=== PATIENT | female | born 1970 | race African-American/Black ===

== ENCOUNTER → 2020-12-17 15:16 | Outpatient (BNVA) | payer OTHER, SELFPAY | PROVIDERS: PCP Internal Medicine; Visit Provider Surgery ==

== ENCOUNTER → 2020-12-17 15:16 | Outpatient (BNVA) | payer OTHER, SELFPAY | PROVIDERS: PCP Internal Medicine; Visit Provider Surgery ==

== ENCOUNTER → 2020-12-18 08:41 | Outpatient (BNVA) | payer OTHER, SELFPAY | PROVIDERS: PCP Internal Medicine; Visit Provider Surgery ==

== ENCOUNTER 2021-01-02 10:07 | Outpatient (REF) | payer OTHER, SELFPAY ==
--- NOTE | ~2021-01-02 | XR_ITS ---
EXAMINATION: XR CHEST CLINICAL INFORMATION: Morbid obesity due to excess calories COMPARISON: None TECHNIQUE: 2 views of the chest were obtained. FINDINGS: There is no focal consolidation. There is no pneumothorax. The trachea is midline. The cardiac mediastinal silhouette is not enlarged. There is no pleural effusions. Very mild degenerative changes of the thoracic spine. Surgical clips in the right upper quadrant abdomen status post cholecystectomy. XR/XR chest 2V IMPRESSION: No acute cardiopulmonary process.
[2021-01-02 11:25] LABS: MANUAL DIFF FLAG NO
[2021-01-02 11:29] LABS: Basophils Absolute Auto 0.1 X10*3/uL (0.0-0.2); Basophils Percent Auto 1.4 % (0-2); Eosinophils Absolute Auto 0.1 X10*3/uL (0.0-0.4); Eosinophils Percent Auto 1.7 % (0-4); Hemoglobin 13.8 g/dl (12.0-16.0); Imm Gran Abs Auto 0.02 X10*3/uL (0.00-0.03); Imm Gran Pct Auto 0.3 % (0.0-0.4); Lymphocytes Percent Auto 51.5 % (20-40); Mean Corpuscular HGB Conc 32.9 g/dl (31.0-35.0); Mean Corpuscular Hemoglobin 26.4 pg (27.0-33.0); Mean Corpuscular Volume 80.5 fL (80-98); Mean Platelet Volume 11.1 fL (9.4-12.3); Monocytes Absolute Auto 0.5 X10*3/uL (0.1-1.2); Monocytes Percent Auto 8.3 % (2-11); Neutrophils Absolute Auto 2.1 X10*3/uL (2.0-8.3); Neutrophils Percent Auto 36.8 % (45-73); Platelet Count 422 X10*3/uL (160-400); Red Blood Count 5.22 X10*6/uL (4.20-5.50); Red Cell Distribution Width 13.9 % (11.0-16.0); White Blood Count 5.8 X10*3/uL (4.8-10.8)
[2021-01-02 11:44] LABS: Estimated Average Glucose 117 mg/dL; Hemoglobin A1c % 5.7 %
[2021-01-02 11:53] LABS: Alanine Aminotransferase 47 U/L (0-31); Albumin Level 4.4 g/dL (3.5-5.0); Alkaline Phosphatase 85 U/L (39-117); Anion Gap 13 (12-20); Aspartate Amino Transferase 30 U/L (5-31); Bilirubin Total 0.9 mg/dL (0.0-1.0); Blood Urea Nitrogen 15 mg/dL (9-16); C Reactive Protein 1.19 mg/dL (< or = 0.50); Calcium 9.7 mg/dL (8.4-10.2); Carbon Dioxide 27 mmol/L (22-29); Chloride 106 mmol/L (96-108); Cholesterol 209 mg/dL; Estimated Glomerular Filt Rate 56; Glucose Random 101 mg/dL (60-115); HDL Cholesterol 56 mg/dL; LDL Cholesterol Calculated 133 mg/dl; Potassium 4.2 mmol/L (3.3-5.1); Sodium 142 mmol/L (135-145); Total Protein 7.7 g/dL (6.5-8.0); Triglycerides 100 mg/dL
[2021-01-02 12:19] LABS: TSH reflex Free T4 1.42 uIU/mL (0.32-4.0)
[2021-01-02 12:50] LABS: Ferritin 206 ng/mL (10-250)
[2021-01-04 08:37] LABS: Folate 15.8 ng/mL (> or = 4.0); Vitamin B12 463 pg/mL (200-900)
[2021-01-04 17:32] LABS: Insulin Level Total 14.8 uIU/mL
[2021-01-05 06:26] LABS: Calcium (PTHI) 9.9 mg/dL (8.6-10.2); PTHI 74 pg/mL (14-64)
[2021-01-05 12:46] LABS: Zinc 86 mcg/dL (60-130)
[2021-01-07 15:36] LABS: Vitamin A 49 mcg/dL (38-98)
== END 2021-01-02 10:08 | disposition home or self-care (01) ==
LOC: HO.LAB 10:07
PROVIDERS: PCP Internal Medicine; Visit Provider Surgery
DX: E66.01 Morbid (severe) obesity due to excess calories (principal); I10 Essential (primary) hypertension; K21.9 Gastro-esophageal reflux disease without esophagitis; Z11.0 Encounter for screening for intestinal infectious diseases
CPT/HCPCS: 36415; 71046; 80053; 80061; 82306; 82607; 82728; 82746; 83036; 83525; 83970; 84425; 84443; 84590; 84630; 85025; 86140

== ENCOUNTER 2021-01-06 08:06 | Outpatient (REF) | payer OTHER, SELFPAY ==
--- NOTE | ~2021-01-06 | US_ITS ---
EXAMINATION: US COMPLETE ABDOMEN WITH LIVER ELASTOGRAPHY CLINICAL INFORMATION: Obesity. COMPARISON: None. TECHNIQUE: Real-time imaging of the abdominal viscera. Noninvasive ultrasound liver fibrosis assessment is performed using Lilly ElastPQ point quantification shear wave elastography (pSWE) with a C5-2 MHz transducer. Multiple elastography samples are obtained. FINDINGS: PANCREAS: The head and body of the pancreas are normal. The tail is not well visualized due to bowel gas. ABDOMINAL AORTA: The proximal, middle, and distal aortic segments are normal in caliber. INFERIOR VENA CAVA: Visualized portions are normal. LIVER: Liver echotexture is increased probably representing fatty infiltration. The liver is normal in contour. No focal liver lesion or biliary ductal dilatation is seen. The liver is upper normal in size. The right lobe measures 17 cm in length. The left lobe measures 13 cm in length. Portal flow is hepatopedal/normal. Shear wave liver elastography median stiffness is 1.2 m/s (reference: normal median stiffness is 1.3 m/s or less). IQR/median stiffness to assess sampling precision is 0.3 (reference: good quality data set is IQR/median stiffness of 0.15 or less). GALLBLADDER: Post cholecystectomy. COMMON BILE DUCT: Normal in caliber measuring 0.7 cm in diameter. RIGHT KIDNEY: There is a 2 cm cyst in the lower pole. No hydronephrosis. No renal calculi or focal parenchymal lesions. The kidney measures 11 cm in maximum dimension. LEFT KIDNEY: Normal. No hydronephrosis. No renal calculi. The kidney measures 11 cm in maximum dimension. SPLEEN: Normal. The spleen measures 9 cm in maximum dimension. FREE FLUID: None. US/US abdomen comp w elastography IMPRESSION: 1. Impression: Echogenic liver probably representing fatty infiltration. Right renal cyst. Limited visualization of the pancreas. 2. Liver elastography: High probability of normal liver stiffness. No evidence of compensated advanced chronic liver disease. Exam is slightly limited due to sampling error. REFERENCE: Society of Radiologists in Ultrasound Liver Stiffness Thresholds (2020): LIVER STIFFNESS THRESHOLDS: *Liver Stiffness equal or less than 1.3 m/s: High probability of being normal. *Liver Stiffness less than 1.7 m/s: In the absence of other known clinical signs, rules out compensated advanced chronic liver disease. *Liver Stiffness 1.7-2.1 m/s: Suggestive of compensated advanced chronic liver disease but need further test for confirmation. *Liver Stiffness over 2.1 m/s: Rules in compensated advanced chronic liver disease. *Liver Stiffness over 2.4 m/s: Suggestive of clinically significant portal hypertension. QUALITY OF DATA SET: *IQR/Median value equal or less than 0.15 implies a quality data set. *IQR/Median value over 0.15 implies a poor quality data set. SIGNIFICANT CHANGE FROM PRIOR EXAM: Significant change if liver stiffness measurement is 10% or greater from prior exam. OTHER CONSIDERATIONS: The stage of liver fibrosis may be overestimated in the setting of acute hepatitis, liver inflammation, elevated liver function tests, hepatic vascular congestion, obstructive cholestasis, non-fasting state, and infiltrative diseases such as amyloidosis and lymphoma. In some patients with NAFLD, the liver stiffness thresholds for compensated advanced chronic liver disease may be lower. In causes other than viral hepatitis and NAFLD, liver stiffness thresholds are not well established.
--- NOTE | ~2021-01-06 | FL_ITS ---
EXAMINATION: XR GI SERIES CLINICAL INFORMATION: Morbid obesity COMPARISON: None TECHNIQUE: Air contrast upper GI examination FINDINGS: There is normal apposition of the vocal cords while saying E. There is normal elevation of the soft palate while saying Candy. Patient swallowed thin and thick barium without difficulty. No nasopharyngeal reflux or tracheal aspiration. The esophagus demonstrated normal distensibility and normal mucosal pattern without persistent stricture or ulceration. No hiatal hernia. There was noted to be spontaneous gastroesophageal reflux to the level of the michele. This cleared slowly. The stomach demonstrated normal distensibility without abnormal mass or ulceration. There was no delay in gastric emptying. The duodenal bulb and sweep appeared unremarkable. FLUOROSCOPY TIME: 1.7 minutes DOSE AREA PRODUCT: 26.962 jacob centimeter squared FL/FL upper GI series IMPRESSION: Normal air contrast upper GI examination except for gastroesophageal reflux to the level of the michele which was spontaneous.
--- NOTE | 2021-01-06 15:25 | ECG_ITS ---
Test Reason : MORBID OBESITY Blood Pressure : / mmHG Vent. Rate : 071 BPM Atrial Rate : 071 BPM P-R Int : 208 ms QRS Dur : 072 ms QT Int : 392 ms P-R-T Axes : 042 038 034 degrees QTc Int : 425 ms Normal sinus rhythm Normal ECG No previous ECGs available Referred By: Cosme Campos Electronically Signed By:Aleksandr Stiles
[2021-01-10 06:37] LABS: Vitamin B1 10 nmol/L (8-30)
== END 2021-01-06 08:07 | disposition home or self-care (01) ==
LOC: HO.US 08:06
PROVIDERS: Visit Provider Surgery
DX: Z01.818 Encounter for other preprocedural examination (principal); E66.01 Morbid (severe) obesity due to excess calories; K21.9 Gastro-esophageal reflux disease without esophagitis; I10 Essential (primary) hypertension
CPT/HCPCS: 36415; 74240; 76705; 76981; 84425; 93005

== ENCOUNTER → 2021-01-15 08:25 | Outpatient (BNVA) | payer OTHER, SELFPAY | PROVIDERS: PCP Internal Medicine; Visit Provider Surgery ==

== ENCOUNTER → 2021-01-20 08:16 | Outpatient (BNVA) | payer OTHER, SELFPAY | PROVIDERS: PCP Internal Medicine; Visit Provider Dietitian, Registered ==

== ENCOUNTER 2021-01-22 07:40 | Outpatient (REF) | payer OTHER, SELFPAY ==
[2021-01-23 14:32] LABS: H Pylori Breath Test NOT DETECTED (NOT DETECTED)
== END 2021-01-22 07:41 | disposition home or self-care (01) ==
LOC: HO.LNP 07:40
PROVIDERS: PCP Internal Medicine; Visit Provider Surgery
DX: Z11.0 Encounter for screening for intestinal infectious diseases (principal)
CPT/HCPCS: 83013

== ENCOUNTER → 2021-02-01 08:10 | Outpatient (BNVA) | payer OTHER, SELFPAY | PROVIDERS: PCP Internal Medicine; Visit Provider Surgery ==

== ENCOUNTER → 2021-02-17 13:17 | Outpatient (BNVA) | payer OTHER, SELFPAY | PROVIDERS: PCP Internal Medicine; Visit Provider Dietitian, Registered ==

== ENCOUNTER → 2021-02-24 08:04 | Outpatient (BNVA) | payer OTHER, SELFPAY | PROVIDERS: PCP Internal Medicine; Visit Provider Surgery ==

== ENCOUNTER → 2021-03-17 08:35 | Outpatient (BNVA) | payer OTHER, SELFPAY | PROVIDERS: PCP Internal Medicine; Visit Provider Surgery ==

== ENCOUNTER → 2021-04-08 08:14 | Outpatient (BNVA) | payer OTHER, SELFPAY | PROVIDERS: PCP Internal Medicine; Visit Provider Surgery ==

== ENCOUNTER → 2021-05-05 07:12 | Outpatient (BNVA) | payer OTHER, SELFPAY | PROVIDERS: PCP Internal Medicine; Visit Provider Surgery ==

== ENCOUNTER → 2021-06-11 06:56 | Outpatient (BNVA) | payer OTHER, SELFPAY | PROVIDERS: PCP Internal Medicine; Visit Provider Surgery ==

== ENCOUNTER → 2021-06-28 09:00 | Outpatient (BNVA) | payer OTHER, SELFPAY | PROVIDERS: PCP Internal Medicine; Visit Provider Physician Assistant ==

== ENCOUNTER → 2021-07-14 07:45 | Outpatient (BNVA) | payer OTHER, SELFPAY | PROVIDERS: PCP Internal Medicine; Visit Provider Surgery ==

== ENCOUNTER → 2021-07-16 12:48 | Outpatient (BNVA) | payer OTHER, SELFPAY | PROVIDERS: PCP Internal Medicine; Visit Provider Physician Assistant ==

== ENCOUNTER 2021-07-27 06:15 | Inpatient (IN) | payer OTHER, SELFPAY ==
[2021-07-16 09:37] VITALS: BMI 38.7
[2021-07-16 13:53] LABS: MANUAL DIFF FLAG NO
[2021-07-16 14:00] LABS: Basophils Absolute Auto 0.1 X10*3/uL (0.0-0.2); Basophils Percent Auto 1.2 % (0-2); Eosinophils Absolute Auto 0.1 X10*3/uL (0.0-0.4); Eosinophils Percent Auto 1.5 % (0-4); Hematocrit 42.1 % (37-47); Imm Gran Abs Auto 0.03 X10*3/uL (0.00-0.03); Imm Gran Pct Auto 0.5 % (0.0-0.4); Lymphocytes Absolute Auto 2.9 X10*3/uL (1.2-4.9); Lymphocytes Percent Auto 47.7 % (20-40); Mean Corpuscular HGB Conc 33.3 g/dl (31.0-35.0); Mean Corpuscular Hemoglobin 26.6 pg (27.0-33.0); Mean Platelet Volume 11.3 fL (9.4-12.3); Monocytes Absolute Auto 0.4 X10*3/uL (0.1-1.2); Monocytes Percent Auto 6.7 % (2-11); Neutrophils Absolute Auto 2.5 X10*3/uL (2.0-8.3); Neutrophils Percent Auto 42.4 % (45-73); Platelet Count 391 X10*3/uL (160-400); Red Blood Count 5.26 X10*6/uL (4.20-5.50); Red Cell Distribution Width 14.1 % (11.0-16.0)
[2021-07-16 14:03] LABS: Prothrombin Time 11.7 SEC (9.9-13.0)
[2021-07-16 14:10] LABS: Estimated Average Glucose 108 mg/dL; Hemoglobin A1c % 5.4 %
[2021-07-16 14:20] LABS: Alanine Aminotransferase 27 U/L (0-31); Albumin Level 4.6 g/dL (3.5-5.0); Alkaline Phosphatase 80 U/L (39-117); Anion Gap 16 (12-20); Aspartate Amino Transferase 23 U/L (5-31); Bilirubin Total 1.3 mg/dL (0.0-1.0); Blood Urea Nitrogen 12 mg/dL (9-16); C Reactive Protein 1.26 mg/dL (< or = 0.50); Calcium 10.3 mg/dL (8.4-10.2); Carbon Dioxide 24 mmol/L (22-29); Chloride 103 mmol/L (96-108); Cholesterol 216 mg/dL; Creatinine Clr Calc Pharmacy 73.7; Estimated Glomerular Filt Rate 50; Glucose Random 95 mg/dL (60-115); HDL Cholesterol 56 mg/dL; LDL Cholesterol Calculated 137 mg/dl; Potassium 3.9 mmol/L (3.3-5.1); Sodium 139 mmol/L (135-145); Total Protein 7.8 g/dL (6.5-8.0); Triglycerides 118 mg/dL
[2021-07-16 14:41] LABS: TSH reflex Free T4 1.08 uIU/mL (0.32-4.0)
[2021-07-20 01:36] LABS: Insulin Level Total 12.7 uIU/mL
--- NOTE | 2021-07-23 08:57 | P.CONAN_ITS ---
Documented by User: Leatha Rollins NP 07/23/21 08:58 HPI - Anesthesia Eval Consult details Narrative: 51yo F for Gastrectomy Sleeve, EGD, Poss Diaphragmatic Hernia, Poss Ventral Hernia, Poss open PMFSH Active Problems Active Problems: All Active Problems (Updated 07/16/21 @ 13:57 by Nory Kearney RN) Vitamin D deficiency (Acute) Vitamin B12 deficiency (Acute) Adjustment disorder, unspecified (Acute) GERD (gastroesophageal reflux disease) (Acute) Hypertension (Acute) Morbid obesity (Acute) Past Medical History Medical History COVID-19 vaccine series completed GERD (gastroesophageal reflux disease) Herpes Hypertension Morbid obesity Family History Family History Mother Hypertension Diabetes Kidney disease Father Prostate cancer Diabetes Hypertension Brother No problems noted. Sister Pre-diabetes Son No problems noted. Surgical History Surgical History Hx of hysterectomy Hx of oophorectomy S/P cholecystectomy Social History Social History Household Members Other:: room mate Are you a primary auto care center manager to a significant other at home: No Do you presently have visiting nurse or other home services: No Patient Tobacco Use Status: Never used Tobacco Use of substances other than those prescribed or required for medical reasons: No Have you been hit, kicked, punched, or otherwise hurt by someone within the past year? If so, by whom?: No Are you DNR?: No Advance Directives: No Advance Directives Information Provided: No Advance Directives on File: No Recently lost weight without trying: No Meds Allergies Allergy/AdvReac Type Severity Reaction Status Date / Time No Known Allergies Allergy Verified 07/16/21 09:28 Home Medications Medication Instructions Recorded Confirmed Last Taken Type amlodipine 10 mg-atorvastatin 10 1 tab PO DAILY 12/18/20 07/16/21 Unknown History mg tablet hydrochlorothiazide 25 mg tablet 25 mg PO DAILY 12/18/20 07/16/21 Unknown History omeprazole 10 mg capsule,delayed 40 mg PO DAILY cap 12/18/20 07/16/21 Unknown History release losartan 25 mg tablet 50 mg PO DAILY 07/14/21 07/16/21 Unknown History Exam Exam Date and Time: July 23, 2021 0857 Height,Weight and Vital Signs: Height 5 ft 6 in Weight 108.862 kg Pertinent Lab Results Pertinent Lab Results: Laboratory Tests 07/16/21 07/16/21 07/16/21 13:10 13:10 13:10 WBC 6.0 RBC 5.26 Hgb 14.0 Hct 42.1 MCV 80.0 MCH 26.6 L MCHC 33.3 RDW 14.1 Plt Count 391 MPV 11.3 Immature Gran % (Auto) 0.5 H Neut % (Auto) 42.4 L Lymph % (Auto) 47.7 H [place] % (Auto) 6.7 Eos % (Auto) 1.5 Baso % (Auto) 1.2 Lymph # (Auto) 2.9 [place] # (Auto) 0.4 Eos # (Auto) 0.1 Baso # (Auto) 0.1 Abs Immat Gran (auto) 0.03 Absolute Neuts (auto) 2.5 Absolute Nucleated RBC 0.000 Nucleated RBC % (auto) 0.0 PT 11.7 INR 1.0 APTT 37.0 Sodium 139 Potassium 3.9 Chloride 103 Carbon Dioxide 24 Anion Gap 16 BUN 12 Creatinine 1.14 Estim Creat Clear Calc 73.7 Estimated GFR 50 Random Glucose 95 Estimat Average Glucose Hemoglobin A1c % Total Insulin Calcium 10.3 H D Total Bilirubin 1.3 H AST 23 ALT 27 Alkaline Phosphatase 80 C-Reactive Protein 1.26 H Total Protein 7.8 Albumin 4.6 Triglycerides 118 Cholesterol 216 LDL Cholesterol, Calc 137 HDL Cholesterol 56 TSH 1.08 Blood Type Antibody Screen 07/16/21 07/16/21 07/16/21 13:10 13:10 13:10 WBC RBC Hgb Hct MCV MCH MCHC RDW Plt Count MPV Immature Gran % (Auto) Neut % (Auto) Lymph % (Auto) [place] % (Auto) Eos % (Auto) Baso % (Auto) Lymph # (Auto) [place] # (Auto) Eos # (Auto) Baso # (Auto) Abs Immat Gran (auto) Absolute Neuts (auto) Absolute Nucleated RBC Nucleated RBC % (auto) PT INR APTT Sodium Potassium Chloride Carbon Dioxide Anion Gap BUN Creatinine Estim Creat Clear Calc Estimated GFR Random Glucose Estimat Average Glucose 108 Hemoglobin A1c % 5.4 Total Insulin 12.7 Calcium Total Bilirubin AST ALT Alkaline Phosphatase C-Reactive Protein Total Protein Albumin Triglycerides Cholesterol LDL Cholesterol, Calc HDL Cholesterol TSH Blood Type A Positive Antibody Screen NEGATIVE Narrative Narrative: EKG 12/2020 Vent. Rate : 071 BPM ? ? Atrial Rate : 071 BPM ?? P-R Int : 208 ms? QRS Dur : 072 ms ? ? QT Int : 392 ms ? ? ? P-R-T Axes : 042 038 034 degrees ?? QTc Int : 425 ms ? Normal sinus rhythm Normal ECG No previous ECGs available Assessment and Plan Assessment Anesthesia Assessment: Chart Reviewed Documented by User: aJnet Dinh MD 07/27/21 10:07 PMFSH Past Medical History Medical History COVID-19 vaccine series completed GERD (gastroesophageal reflux disease) Herpes Hypertension Morbid obesity Family History Family History Mother Hypertension Diabetes Kidney disease Father Prostate cancer Diabetes Hypertension Brother No problems noted. Sister Pre-diabetes Son No problems noted. Surgical History Surgical History Hx of hysterectomy Hx of oophorectomy S/P cholecystectomy History of Problems with Anesthesia: No Social History Social History Household Members Other:: room mate Are you a primary auto care center manager to a significant other at home: No Do you presently have visiting nurse or other home services: No Patient Tobacco Use Status: Never used Tobacco Use of substances other than those prescribed or required for medical reasons: No Have you been hit, kicked, punched, or otherwise hurt by someone within the past year? If so, by whom?: No Are you DNR?: No Advance Directives: No Advance Directives Information Provided: No Advance Directives on File: No Recently lost weight without trying: No Meds Allergies Allergy/AdvReac Type Severity Reaction Status Date / Time No Known Allergies Allergy Verified 07/16/21 09:28 Home Medications Medication Instructions Recorded Confirmed Last Taken Type amlodipine 10 mg-atorvastatin 10 1 tab PO DAILY 12/18/20 07/16/21 Unknown History mg tablet hydrochlorothiazide 25 mg tablet 25 mg PO DAILY 12/18/20 07/16/21 Unknown History omeprazole 10 mg capsule,delayed 40 mg PO DAILY cap 12/18/20 07/16/21 Unknown History release losartan 25 mg tablet 50 mg PO DAILY 07/14/21 07/16/21 Unknown History Exam Airway Mallampati Class: II TM Dist: >3cm Neck ROM: Full Loose/Missing/Broken Teeth: No Heart: RRR Lungs: CTA Assessment and Plan Assessment Anesthesia Assessment: Anesthesia Plan Discussed Final Anesthetic Review History of Problems with Anesthesia: No NPO: Yes ASA Class: II Final Preanesthetic Review: Meds/Allgs Chart Reviewed, Consent Obtained/Reviewed and Anes Risks/Benef Reviewed Patient Risk: Low Procedure Risk: Intermediate Anesthetic Plan Anesthetic Plan: GA Disposition: Standard PACU
--- NOTE | 2021-07-26 23:20 | MHC.SHP ---
Pre-Procedural Eval Section A Date of Service: 07/26/21 The patient is an INPATIENT: Yes The History & Physical has been completed within 30 days and I have reviewed it.: Yes Section B Chief Complaint: Morbid Severe Obesity Relevant Family History (Specify if Yes): No Relevant Social History: None History of Previous Operations: No relevant previous surgery Allergies: Allergies Allergy/AdvReac Type Severity Reaction Status Date / Time No Known Allergies Allergy Verified 07/16/21 09:28 Review of Systems Sugical H&P ROS: Negative: Constitution, Cardiovascular, Respiratory, Neurological, Psychiatric, Hem-Onc, Allergic/Immunologic, Gastrointestinal, Genitourinary, Musculoskeletal, Integumentary, Endocrine and Eyes/Ears/Nose/Throat Exam Surgical H&P Exam: Normal: HEENT, Normal: Heart, Normal: Lungs, Normal: Extremities, Normal: Abdomen, Normal: Skin and Normal: Neurological Plan Diagnosis/Plan: Unchanged I have reviewed the history and physical and performed a pertinent physical examination on my patient. No changes have occurred unless specified.
[2021-07-27] VITALS (16 sets, daily range): BP systolic 139–179; BP diastolic 71–98; PULSE 65–83; RESP 14–18; TEMP 36.2–36.8; O2SAT 91–100
[2021-07-27] MEDS: Lactated Ringers 1,000 ML 100 ML IVCONT (09:31)
[2021-07-27] MEDS: Lactated Ringers 1,000 ML 999 ML IV (09:31)
[2021-07-27 09:52] LABS: COVID-19 Test Negative (Negative)
--- NOTE | 2021-07-27 10:10 | PM.PNGS ---
Subjective Subjective Date of Service: 07/28/21 Interval history: Patient has mild incisional pain, but was able to ambulate and use the incentive spirometer. She is tolerating phase 1 bariatric diet Physical Exam Vital Signs: Vital Signs: Last Vital Signs Temp 98 F 07/27/21 09:05 Pulse 78 07/27/21 09:05 Resp 18 07/27/21 09:05 BP 173/98 H 07/27/21 09:05 Pulse Ox 98 07/27/21 09:05 Body Mass Index 38.7 GI: Inspection: Yes normal to inspection and Yes incision (clean, dry and intact) Extrem: Right lower extremity: normal to inspection (no calf tenderness) Left lower extremity: normal to inspection (no calf tenderness) Procedures Date of Service Date of Service: 07/28/21 Progress Note: A&P Assessment and plan (1) Morbid obesity: Status: Acute Assessment and Plan: s/p laparoscopic sleeve gastrectomy and gastropexy Doing well Check am labs. If OK, will discharge home (2) Hypertension: Status: Acute (3) GERD (gastroesophageal reflux disease): Status: Acute (4) Adjustment disorder, unspecified: Status: Acute (5) Steatosis, liver: Status: Acute (6) S/P laparoscopic sleeve gastrectomy: Status: Acute (7) Gastric tumor: Status: Acute Fall Risk Details Current Medications: Current Medications Generic Name Dose Route Start Last Admin Trade Name Freq PRN Reason Stop Dose Admin Albuterol Sulfate 2.5 mg 07/27/21 10:08 Albuterol Sulfate (0.083%) 2.5 Mg/3 Ml Vial.Neb INHALE ONCE PRN Wheezing Fentanyl 50 mcg 07/27/21 10:08 Fentanyl Citrate/Pf 100 Mcg/2 Ml Vial IVPUSH Q5M PRN Pain, Severe (Pain Scale 7-10) Protocol Fentanyl 25 mcg 07/27/21 10:08 Fentanyl Citrate/Pf 100 Mcg/2 Ml Vial IVPUSH Q5M PRN Pain, Moderate (Pain Scale 4-6 Protocol Hydromorphone HCl 0.5 mg 07/27/21 10:08 Hydromorphone Hcl 0.5 Mg/0.5 Ml Syringe IVPUSH Q5M PRN Pain, Severe (Pain Scale 7-10) Protocol Hydromorphone HCl 0.25 mg 07/27/21 10:08 Hydromorphone Hcl 0.5 Mg/0.5 Ml Syringe IVPUSH Q5M PRN Pain, Severe (Pain Scale 7-10) Protocol Lactated Ringer's 1,000 mls @ 100 mls/hr 07/27/21 07:30 07/27/21 09:31 Lr IVCONT 100 mls/hr .Q10H KORY Administration Promethazine HCl 12.5 mg/ 50.5 mls @ 202 mls/hr 07/27/21 10:08 Sodium Chloride IV ONCE PRN Nausea and Vomiting Ondansetron HCl 4 mg 07/27/21 10:08 Ondansetron Hcl 4 Mg/2 Ml Vial IVPUSH ONCE PRN Nausea and Vomiting Oxycodone HCl 10 mg 07/27/21 10:08 Oxycodone Hcl Immed Release 5 Mg Tablet PO ONCE PRN Pain, Severe (Pain Scale 7-10) Oxycodone HCl 5 mg 07/27/21 10:08 Oxycodone Hcl Immed Release 5 Mg Tablet PO ONCE PRN Pain, Severe (Pain Scale 7-10) Time Spent With Patient Time: Total time spent is greater than 50% in coordination of care (as documented) at patient's floor/unit and/or counseling patient: Time with patient: less than 15 minutes Quality Stroke Does the patient have a stroke diagnosis?: No VTE Prior VTE?: No VTE Risk Level:: Surgical - moderate VTE Device Contraindication: N/A - Device Ordered VTE Drug Contraindication: Treatment Not Indicated
--- NOTE | 2021-07-27 10:12 | P.BOP_ITS ---
Brief Operative Note Date of Service: 07/27/21 Pre-op diagnosis: Morbid obesity and comorbidities (see below) Post-op diagnosis: same (gastric tumor & abdominal adhesions) Procedure: INITIAL PATIENT BMI ON PRESENTATION AT OUR OFFICE: 41.1 kg/m2 LAST BMI BEFORE SURGERY: 40.3 kg/m2 COMORBIDITIES: hypertension, GERD, liver steatosis The patient participated in an intensive weekly lifestyle ?intervention and exercise program during which the patient ?has lost between the initial office visit and the last preoperative visit 7.2 lbs, or 2.96% of initial actual body weight. The patient met the BMI-criteria for bariatric surgery based on the BMI on initial presentation. The patient should not be penalized for achieving such weight loss because ?it is not sustainable long-term without surgical intervention and it was achieved in preparation for bariatric surgery ?under my direction and based on my published research ([email or web address] and? [email or web address].org/article/[email or web address])87530-X/pdf ) ?that a 10% preoperative weight loss improves long-term weight loss after surgery and reduces perioperative complications.? Insurance carriers such as [facility] have endorsed my recommendations ?and have included in their policies criteria to include a 10% preoperative weight loss requirement. PROCEDURE: Esophago-gastroscopy, laparoscopic sleeve gastrectomy and laparoscopic gastropexy INDICATIONS: This is a 51 year-old female who was electively scheduled for laparoscopic, possibly open sleeve gastrectomy. The risks and complications of the procedure were discussed with the patient in advance, particularly the possibility of ; pulmonary embolism; staple line leak; bleeding; GERD; cardiac, pulmonary, or renal complications; as well as long-term problems such as insufficient weight loss, vitamin deficiency, strictures, or ulcers. The patient understood all the risks, and was in agreement to proceed with surgery. DESCRIPTION OF PROCEDURE: After informed consent was obtained from the patient, the patient was given preoperative antibiotics, and was transferred to the operating room. After successful induction of general anesthesia, pneumatic compressive devices were placed on both lower extremities. An upper endoscopy was performed next. The oropharynx and esophagus appeared to be within normal limits. There was no diaphragmatic hernia present consistent w ith the findings of the preoperative upper GI. The stomach was entered. Then after all fluid and air were suctioned and the stomach was fully decompressed, the scope was withdrawn and secured in the mid esophagus. The patient was then prepped and draped in the usual sterile manner, and abdominal access was established at the right upper quadrant with the Marcos technique. A 12 mm blunt port was inserted, and the abdomen was insufflated with CO2 to a pressure of 15 mmHg. Under direct visualization, additional ports were placed, specifically two 5 mm Versi-step ports to the left upper quadrant, and a 5 mm Versi-Step port to the right upper quadrant. 1% lidocaine plain was used to infiltrate all port sites as well as all fascia defects. Using the EndoClose suture passer device, we placed a #1 Polysorb tie across the falciform ligament in order to retract it up against the abdominal wall and prevent injury of the ligament with our instruments during the procedure. There were adhesions in the abdomen from previous hysterectomy involving the omentum and the anterior abdominal wall. They were not lysed as they did not interfere with our procedure. Following that, the patient was placed in a steep reverse Trendelenburg position. An additional 5 mm port was placed to the right flank for the Mediflex retractor that was used to retract the left lobe of the liver. The gastro-esophageal fat pad was opened with the ultrasonic device (Thunderbeat, Olympus) and the anterior esophagus and hiatus were exposed. The angle of His was opened with the ultrasonic device the fundus of the stomach from any diaphragmatic and splenic attachments. I then opened the gastrocolic ligament between the transverse colon and the greater curvature of the stomach with the ultrasonic device to enter the lesser sac and facilitate the ligation of the short gastric vessels. I started at a mid-point along the greater curvature and using the Thunderbeat, all short gastric vessels were divided all the way to the angle of His until the left serge was completely dissected at its entirety. I then divided the gastro-colic ligament distally to a distance of about 3-4 cm proximal to the esophagus. The stomach was then divided transversely with one Endo NILTON-45 purple, one NILTON- 45 orange and five NILTON-60 articulating orange loads using the AEON stapler and loads. Every effort was made that the gastric sleeve had a tubular shape and an even caliber throughout. Once the sleeve resection was completed, the staple line of the gastric sleeve was reinforced with Hemoclips. The resected stomach was retrieved without difficulty from the Marcos port. A gastropexy was then performed in order to prevent postoperative GERD and partial gastric volvulus. Several interrupted 2.0 Surgidac sutures were placed between the sleeve's staple line and the previously divided greater omentum and gastro-colic ligament using the Endo-Stitch device. ?An upper endoscopy was performed. There was no narrowing at the GE junction. The scope was easily advanced all the way to the pylorus which was clearly visualized. There was no narrowing anywhere and the sleeve's caliber was even throughout. The sleeve's staple line was inspected and there was no evidence of ischemia, bleeding or dehiscence. At that point the gastroscope was withdrawn from the patient?s mouth while we were decompressing the bowel and the stomach from any remaining air. I looked into the lesser sac to see how the sleeve was situating and it was situating well. There was no bleeding from the staple line, spleen, or short gastric vessels. The Mediflex retractor was removed, and the undersurface of the liver was inspected and there was no bleeding. The patient was placed in supine position. I closed the fascial defect of the 12 mm port site with a figure of eight #1 Polysorb suture. Then 100 cc 0.25 % Marcaine plain with 10 mg of Dexamethasone were used to infiltrate the fascial closure as well as all skin incisions. At this point, the abdomen was deflated, all ports were removed under direct vision, and no bleeding was noted from any of the port sites. The skin incisions were irrigated with saline and were closed with 4-0 absorbable monofilament sutures. Steri-Strips and OpSites were used to cover all incisions. The patient was extubated and was transferred in stable condition to the recovery room for further care. I was present and performed all louie parts of the procedure. Petey was the boilermaker's assistant. There were no residents to assist with this case. Itz Campos MD, PhD, FACS Surgeon: Cosme Campos MD Anesthesia: GETA, local and other (TAP block) Was an Fabric Separator Operator used for this Procedure?: No Fabric Separator Operator: Rizwana Angelo Estimated blood loss (mL): 10 IV fluids (mL): 2,500 Urine output (mL): 0 (No Chapman to record) Condition: stable Disposition: PACU
--- NOTE | 2021-07-27 13:05 | P.DS_ITS ---
DS: Providers Provider Date of Service: 07/28/21 Date of admission: 07/27/21 06:15 Primary care physician: Trini Physician DS: Diagnosis Discharge Diagnosis (1) Morbid obesity: Status: Acute (2) Hypertension: Status: Acute (3) GERD (gastroesophageal reflux disease): Status: Acute (4) Adjustment disorder, unspecified: Status: Acute (5) Steatosis, liver: Status: Acute (6) S/P laparoscopic sleeve gastrectomy: Status: Acute (7) Gastric tumor: Status: Acute DS: Summary Hospital Course Hospital Course: ADMITTING DIAGNOSIS: morbid obesity, HTN, hyperlipidemia, GERD DISCHARGE DIAGNOSIS: same, s/p laparoscopic sleeve gastrectomy and repair diaphragmatic hernia PAST SURGICAL HISTORY:laparoscopic cholecystectomy, hysterectomy PROCEDURE: upper endoscopy, laparoscopic sleeve gastrectomy DISCHARGE SUMMARY: History of Present Illness: The patient is a 51 year-old woman with a BMI of 41.1 kg/m2 and associated co- morbidities as described above. The patient had extensive work-up,lost 7 lbs preoperatively and was electively scheduled for laparoscopic, possible open sleeve gastrectomy and gastropexy. Risks and complications of the surgery were discussed with the patient in advance, particularly the possibility of , pulmonary embolism, anastomotic leak, bleeding, bowel injury, GERD, cardiac, renal or pulmonary complications. The patient understood all the risks and was in agreement with the surgical plan. Hospital Course: The patient underwent an uneventful laparoscopic sleeve gastrectomy with gastropexy on the day of admission. Postoperatively, the patient was transferred to the surgical floor. The patient received IV Acetaminophen and IV dilaudid for pain control. Patient was started on bariatric phase 1 diet POD #0. On postoperative day one, the patient was feeling well without nausea, vomiting, fevers, or tachycardia. The patient had some mild incisional pain and the abdomen was soft. On the morning of postoperative day one, the patient was continued on 1 ounce of water or ice every half hour. During the day, the patient did fairly well, having some incisional pain, but able to ambulate adequately and to tolerate liquids well. Since the patient is doing well, we decided that the patient was ready to be discharged. The patient was given instructions to follow-up with me next week and to call my office for any fever over 101, persistent abdominal pain, nausea, vomiting, GERD, symptoms of DVT such as calf tenderness, or leg swelling, or pulmonary embolism such as chest pain or shortness of breath. The patient was also instructed to drink 40-60 ounces of liquids per day using the 1-ounce cups. The patient had been given prescriptions for Tylenol for pain, Zofran prn for nausea, and pantoprazole and carafate previously. The patient was encouraged to ambulate and use the incentive spirometer. The patient was allowed to shower, but no baths, and encouraged to stay active at home. All of these instructions were given to the patient personally. All questions were answered and the patient understood all instructions, the instructions were also given to the patient in print. Time Spent with Patient Time attestation: Total time spent providing and/or coordinating discharge services: Discharge coordination time: Less than 30 minutes Quality: Stroke Does the patient have a stroke diagnosis?: No Physical Exam Vital Signs: Vital Signs: Last Vital Signs Temp 98 F 07/27/21 09:05 Pulse 78 07/27/21 09:05 Resp 18 07/27/21 09:05 BP 173/98 H 07/27/21 09:05 Pulse Ox 98 07/27/21 09:05 Body Mass Index 38.7 DS: Data Data Completed and Pending Pending studies at discharge: Pending at discharge 07/27/21 12:37 Surgical [PTH] Routine Labs on day of discharge: Laboratory Results - last 24 hr 07/27/21 08:56 COVID-19 ([facility]) Negative COVID-19 Clin Com See Note Discharge Plan Discharge Anticipated Discharge Date/Time: 07/28/21 10:02 Patient Disposition: Home, Self-Care Discharge Diagnosis: s/p sleeve gastrectomy Referrals: Physician,None [Primary Care Provider] - 1 Week Discharge Medications: Continued amlodipine-atorvastatin 10-10 mg tablet 1 tab PO DAILY RF: 0 losartan 25 mg tablet 50 mg PO DAILY RF: 0 pantoprazole 40 mg tablet,delayed release (DR/EC) 40 mg PO DAILY Qty: 30 RF: 2 sucralfate 100 mg/mL suspension 10 ml PO BID Qty: 400 RF: 2 ondansetron HCl [Zofran] 4 mg tablet 4 mg PO Q12H Qty: 20 RF: 0 Held hydrochlorothiazide 25 mg tablet 25 mg PO DAILY RF: 0 Hold Instructions: Discuss restarting with Dr Campos Discontinued cholecalciferol (vitamin D3) 125 mcg (5,000 unit) capsule 125 mcg PO DAILY Qty: 30 RF: 2 mecobalamin (vitamin B12) 1,000 mcg tablet,disintegrating 1,000 mcg sublingual DAILY Qty: 30 RF: 2 omeprazole 10 mg capsule,delayed release(DR/EC) 40 mg PO DAILY RF: 0 polyethylene glycol 3350 [Miralax] 17 gram powder in packet 17 g PO DAILY Qty: 14 RF: 0 Discharge Orders: Discharge Order (Routine); Ordered 07/28/21 Ordered By: Cosme Campos Diet: other Activity on Discharge: No heavy lifting Stand Alone Forms: Patient Portal Discharge page Care Plan Goals: weight loss Health Concerns: morbid obesity Plan of Treatment: No tub baths, sex or returning to work until discussed at first post op appointment. No exercise, alcohol, tobacco or illegal drug use. Continue to use incentive spirometer hourly while awake. Walk in home for 5- 10 minutes every 2 hours during the first week. Continue phase 1 diet today and start phase 2 diet tomorrow morning. Follow all instructions in the bariatric handbook and call with any questions. The patient's medical history has been reviewed and they are considered low risk for post op DVT and therefore DVT prophylaxis is not considered necessary. Travel after surgery was reviewed. The patient has not disclosed any travel plans during the first 30 days after surgery and they have been advised that within the first 30 days after surgery any bus, plane, train or car travel over 2 hours in duration is contraindicated due to the possibility of developing blood clots from immobility. Any travel, needs to include periods of ambulation of 10 minutes in duration every 2 hours. The patient was instructed to discuss any plans for travel during this period with their bariatric surgeon. Assessment: stable, s/p sleeve gastrectomy
[2021-07-27] MEDS: Famotidine/PF 20 MG/2 ML VIAL IVPUSH ×2 (13:26→22:25)
[2021-07-27 13:34] LABS: Hematocrit 43.9 % (37-47); Hemoglobin 14.2 g/dl (12.0-16.0)
[2021-07-27 13:54] LABS: Anion Gap 13 (12-20); Blood Urea Nitrogen 6 mg/dL (9-16); Calcium 9.6 mg/dL (8.4-10.2); Carbon Dioxide 25 mmol/L (22-29); Chloride 107 mmol/L (96-108); Creatinine Clr Calc Pharmacy 67.2; Estimated Glomerular Filt Rate 45; Glucose Random 151 mg/dL (60-115); Potassium 3.9 mmol/L (3.3-5.1); Sodium 141 mmol/L (135-145)
[2021-07-27] MEDS: Lactated Ringers 1,000 ML 125 ML IVCONT ×2 (14:26→22:27)
[2021-07-27] MEDS: ceFAZolin Sodium/Dextrose,Iso 2 GM/50 ML PIGGYBACK IV (16:04)
[2021-07-27] MEDS: Losartan Potassium 50 MG TABLET PO (17:33)
[2021-07-27] MEDS: Metoclopramide HCl 10 MG/2 ML VIAL IVPUSH (17:47)
[2021-07-27] MEDS: ondansetron HCL 4 MG/2 ML VIAL IVPUSH (20:14)
[2021-07-27] MEDS: amLODIPine Besylate 10 MG TABLET PO (20:14)
[2021-07-28 03:52] VITALS: BP 136/69; PULSE 78; RESP 16; TEMP 36.6; O2SAT 97
[2021-07-28] MEDS: ondansetron HCL 4 MG/2 ML VIAL IVPUSH (04:31)
[2021-07-28] MEDS: Lactated Ringers 1,000 ML 125 ML IVCONT (06:08)
[2021-07-28 06:30] LABS: MANUAL DIFF FLAG NO
[2021-07-28 06:48] LABS: Anion Gap 14 (12-20); Blood Urea Nitrogen 6 mg/dL (9-16); Calcium 9.7 mg/dL (8.4-10.2); Carbon Dioxide 25 mmol/L (22-29); Chloride 105 mmol/L (96-108); Creatinine Clr Calc Pharmacy 74.4; Estimated Glomerular Filt Rate 51; Glucose Random 110 mg/dL (60-115); Potassium 4.1 mmol/L (3.3-5.1); Sodium 140 mmol/L (135-145)
[2021-07-28 06:52] LABS: Basophils Percent Auto 0.1 % (0-2); Hematocrit 38.6 % (37-47); Imm Gran Abs Auto 0.03 X10*3/uL (0.00-0.03); Imm Gran Pct Auto 0.3 % (0.0-0.4); Lymphocytes Absolute Auto 1.5 X10*3/uL (1.2-4.9); Lymphocytes Percent Auto 17.3 % (20-40); Mean Corpuscular HGB Conc 33.7 g/dl (31.0-35.0); Mean Corpuscular Hemoglobin 26.8 pg (27.0-33.0); Mean Corpuscular Volume 79.6 fL (80-98); Mean Platelet Volume 11.6 fL (9.4-12.3); Monocytes Absolute Auto 0.7 X10*3/uL (0.1-1.2); Monocytes Percent Auto 7.8 % (2-11); Neutrophils Absolute Auto 6.6 X10*3/uL (2.0-8.3); Neutrophils Percent Auto 74.5 % (45-73); Platelet Count 338 X10*3/uL (160-400); Red Blood Count 4.85 X10*6/uL (4.20-5.50); Red Cell Distribution Width 13.7 % (11.0-16.0); White Blood Count 8.8 X10*3/uL (4.8-10.8)
[2021-07-28 07:33] VITALS: BP 136/69; PULSE 90
[2021-07-28] MEDS: Losartan Potassium 50 MG TABLET PO (07:33)
[2021-07-28] MEDS: Famotidine/PF 20 MG/2 ML VIAL IVPUSH (07:33)
[2021-07-28 07:34] VITALS: BP 136/69; PULSE 78
[2021-07-28] MEDS: 0.9 % Sodium Chloride Flush 3 ML SYRINGE IVFLUSH (07:34)
[2021-07-28] MEDS: amLODIPine Besylate 10 MG TABLET PO (07:34)
--- NOTE | 2021-07-28 09:09 | MHC.CM.PN ---
EMR REVIEWED, PT ADMITTED S/P LAP SLEEVE GASTRECTOMY, CM MET W/PT WHO REPORTS SHE IS INDEPENDENT W/ALL CARE, NO DME AND NO HOME SERVICES, PT DOES NOT ANTICIPATE ANY NEEDS AFTER D/C AND HAS FOLLOW-UP APPT W/SURGEON, PT VERIFIES PCP AND COMPLETES HCP W/CM, PT GIVEN EDUCATIONAL INFO, ORIGINAL AND TWO COPIES, COPY UPLOADED TO [employer] AND PLACED IN CHART. D/C HOME SELF-CARE TODAY, PT'S SON TO TRANSPORT HCP: OLIVIA MCFADDEN (SISTER) [phone] ALTERNATE: AUDELIA DEL TORO
--- NOTE | 2021-07-28 15:08 | HO.POSTANES ---
Post Anesthesia Evaluation Post Anesthesia Evaluation Vital Signs: Vital Signs Temp Pulse Resp BP Pulse Ox 07/28/21 07:34 78 136/69 07/28/21 07:33 90 136/69 07/28/21 03:52 97.9 F 78 16 136/69 97 Anesthesia: General Endotracheal-GETA Mental Status: Awake Pain Control: Satisfactory Nausea/Vomiting: None Hydration: Adequate Anesthesia-Related Issues: No Anes. Related Issues
== END 2021-07-28 10:30 | disposition home or self-care (01) | DRG 403 ==
LOC: HO.SSSA 13:05 → HO.S3 15:05
PROVIDERS: Physician Assistant; Admitting Provider Surgery; PCP Internal Medicine; Visit Provider Surgery
PROC: 0DB64Z3 Excision of Stomach, Percutaneous Endoscopic Approach, Vertical (ICD-10-PCS; CPT 43845; principal; 2021-07-27 10:10)
DX: E66.01 Morbid (severe) obesity due to excess calories (principal); D49.0 Neoplasm of unspecified behavior of digestive system; I10 Essential (primary) hypertension; K21.9 Gastro-esophageal reflux disease without esophagitis; K66.0 Peritoneal adhesions (postprocedural) (postinfection); Z20.822 Contact with and (suspected) exposure to COVID-19; Z68.41 Body mass index [BMI] 40.0-44.9, adult; Z79.899 Other long term (current) drug therapy
CPT/HCPCS: 36415; 80048; 80053; 80061; 83036; 83525; 84443; 85014; 85018; 85025; 85610; 85730; 86140; 86850; 86900; 86901; 87635; 88307; 88341; 88342; 99024; A4649; J0131; J0690; J1100; J1170; J2250; J2370; J2405; J2765; J3010

== ENCOUNTER → 2021-08-04 07:18 | Outpatient (BNVA) | payer OTHER, SELFPAY | PROVIDERS: PCP Internal Medicine; Visit Provider Surgery ==

== ENCOUNTER → 2021-09-02 07:59 | Outpatient (BNVA) | payer OTHER, SELFPAY | PROVIDERS: PCP Internal Medicine; Visit Provider Surgery ==

== ENCOUNTER → 2021-10-06 07:59 | Outpatient (BNVA) | payer OTHER, SELFPAY | PROVIDERS: PCP Internal Medicine; Visit Provider Surgery ==

== ENCOUNTER 2021-10-22 13:18 | Outpatient (REF) | payer OTHER, SELFPAY ==
[2021-10-22 13:45] LABS: MANUAL DIFF FLAG NO
[2021-10-22 14:23] LABS: Basophils Absolute Auto 0.1 X10*3/uL (0.0-0.2); Basophils Percent Auto 1.1 % (0-2); Eosinophils Percent Auto 0.7 % (0-4); Hematocrit 43.4 % (37.0-47.0); Imm Gran Abs Auto 0.01 X10*3/uL (0.00-0.03); Imm Gran Pct Auto 0.2 % (0.0-0.4); Lymphocytes Absolute Auto 2.8 X10*3/uL (1.2-4.9); Lymphocytes Percent Auto 49.9 % (20-40); Mean Corpuscular HGB Conc 32.3 g/dl (31.0-35.0); Mean Corpuscular Hemoglobin 26.4 pg (27.0-33.0); Mean Corpuscular Volume 81.7 fL (80.0-98.0); Mean Platelet Volume 11.7 fL (9.4-12.3); Monocytes Absolute Auto 0.4 X10*3/uL (0.1-1.2); Monocytes Percent Auto 6.5 % (2-11); Neutrophils Absolute Auto 2.3 x10*3/uL (2.0-8.3); Neutrophils Percent Auto 41.6 % (45-73); Platelet Count 364 X10*3/uL (160-400); Red Blood Count 5.31 X10*6/uL (4.20-5.50); Red Cell Distribution Width 14.4 % (11.0-16.0); White Blood Count 5.5 X10*3/uL (4.8-10.8)
[2021-10-22 14:36] LABS: Estimated Average Glucose 103 mg/dL; Hemoglobin A1c % 5.2 %
[2021-10-22 14:55] LABS: Alanine Aminotransferase 20 U/L (0-31); Albumin Level 4.5 g/dL (3.5-5.0); Alkaline Phosphatase 92 U/L (39-117); Anion Gap 16 (12-20); Aspartate Amino Transferase 22 U/L (5-31); Bilirubin Total 1.2 mg/dL (0.0-1.0); Blood Urea Nitrogen 12 mg/dL (9-16); C Reactive Protein 0.59 mg/dL (< or = 0.50); Calcium 10.5 mg/dL (8.4-10.2); Carbon Dioxide 26 mmol/L (22-29); Chloride 106 mmol/L (96-108); Cholesterol 188 mg/dL; Estimated Glomerular Filt Rate 53; Glucose Random 91 mg/dL (60-115); HDL Cholesterol 62 mg/dL; Iron 84 mcg/dL (30-160); LDL Cholesterol Calculated 109 mg/dl; Percent Iron Saturation 28 % (15-50); Potassium 3.9 mmol/L (3.3-5.1); Sodium 144 mmol/L (135-145); Total Iron Binding Capacity 301 mcg/dL (228-428); Total Protein 7.8 g/dL (6.5-8.0); Triglycerides 89 mg/dL; Unsaturated Iron Binding 217 ug/dL
[2021-10-22 15:09] LABS: Ferritin 243 ng/mL (10-250); Insulin 11 uU/mL (2-29); TSH reflex Free T4 1.25 uIU/mL (0.32-4.0); Vitamin D 25-OH Total 45.8 ng/mL (>30)
[2021-10-22 15:34] LABS: Folate 15.6 ng/mL (> or = 4.0); Vitamin B12 1331 pg/mL (200-900)
[2021-10-25 14:42] LABS: Calcium (PTHI) 10.6 mg/dL (8.6-10.4); PTHI 40 pg/mL (14-64)
[2021-10-27 00:20] LABS: Vitamin A 41 mcg/dL (38-98)
[2021-10-27 00:51] LABS: Zinc 91 mcg/dL (60-130)
[2021-10-27 11:42] LABS: Vitamin B1 9 nmol/L (8-30)
== END 2021-10-22 13:19 | disposition home or self-care (01) ==
LOC: HO.LAB 13:18
PROVIDERS: Visit Provider Surgery
DX: K91.2 Postsurgical malabsorption, not elsewhere classified (principal); Z90.3 Acquired absence of stomach [part of]
CPT/HCPCS: 36415; 80053; 80061; 82306; 82607; 82728; 82746; 83036; 83525; 83540; 83970; 84425; 84443; 84590; 84630; 85025; 86140

== ENCOUNTER → 2021-10-28 10:07 | Outpatient (BNVA) | payer OTHER, SELFPAY | PROVIDERS: PCP Internal Medicine; Referring Provider Internal Medicine; Visit Provider Physician Assistant Surgical ==

== ENCOUNTER 2022-01-21 08:48 | Outpatient (REF) | payer OTHER, SELFPAY ==
[2022-01-21 10:22] LABS: MANUAL DIFF FLAG NO
[2022-01-21 10:51] LABS: Basophils Absolute Auto 0.1 X10*3/uL (0.0-0.2); Basophils Percent Auto 1.3 % (0-2); Eosinophils Absolute Auto 0.1 X10*3/uL (0.0-0.4); Eosinophils Percent Auto 1.3 % (0-4); Hematocrit 40.7 % (37.0-47.0); Hemoglobin 13.1 g/dl (12.0-16.0); Imm Gran Abs Auto 0.01 X10*3/uL (0.00-0.03); Imm Gran Pct Auto 0.2 % (0.0-0.4); Lymphocytes Absolute Auto 2.7 X10*3/uL (1.2-4.9); Lymphocytes Percent Auto 50.8 % (20-40); Mean Corpuscular HGB Conc 32.2 g/dl (31.0-35.0); Mean Corpuscular Hemoglobin 26.8 pg (27.0-33.0); Mean Corpuscular Volume 83.4 fL (80.0-98.0); Mean Platelet Volume 11.4 fL (9.4-12.3); Monocytes Absolute Auto 0.4 X10*3/uL (0.1-1.2); Neutrophils Absolute Auto 2.1 x10*3/uL (2.0-8.3); Neutrophils Percent Auto 38.4 % (45-73); Platelet Count 315 X10*3/uL (160-400); Red Blood Count 4.88 X10*6/uL (4.20-5.50); Red Cell Distribution Width 13.9 % (11.0-16.0); White Blood Count 5.4 X10*3/uL (4.8-10.8)
[2022-01-21 11:35] LABS: Anion Gap 11 (12-20); Blood Urea Nitrogen 15 mg/dL (9-16); Calcium 10.1 mg/dL (8.4-10.2); Carbon Dioxide 30 mmol/L (22-29); Chloride 103 mmol/L (96-108); Estimated Glomerular Filt Rate 52; Glucose Random 85 mg/dL (60-115); Iron 78 mcg/dL (30-160); Percent Iron Saturation 26 % (15-50); Potassium 4.1 mmol/L (3.3-5.1); Sodium 140 mmol/L (135-145); Total Iron Binding Capacity 299 mcg/dL (228-428); Unsaturated Iron Binding 221 ug/dL
[2022-01-21 11:42] LABS: Folate 18.8 ng/mL (> or = 4.0); Vitamin B12 1095 pg/mL (200-900)
[2022-01-21 11:59] LABS: Ferritin 226 ng/mL (10-250); TSH reflex Free T4 1.05 uIU/mL (0.32-4.0)
[2022-01-26 01:07] LABS: Zinc 103 mcg/dL (60-130)
[2022-01-27 08:11] LABS: Vitamin B1 29 nmol/L (8-30)
[2022-01-27 10:05] LABS: Vitamin A 50 mcg/dL (38-98)
== END 2022-01-21 08:49 | disposition home or self-care (01) ==
LOC: HO.LAB 08:48
PROVIDERS: PCP Internal Medicine; Visit Provider Physician Assistant Surgical
DX: K91.2 Postsurgical malabsorption, not elsewhere classified (principal); E66.9 Obesity, unspecified; Z90.3 Acquired absence of stomach [part of]; Z98.84 Bariatric surgery status
CPT/HCPCS: 36415; 80048; 82306; 82607; 82728; 82746; 83540; 84425; 84443; 84590; 84630; 85025

== ENCOUNTER → 2022-02-25 08:03 | Outpatient (BNVA) | payer OTHER, SELFPAY | PROVIDERS: PCP Internal Medicine; Visit Provider Physician Assistant Surgical | DX: Z98.84 Bariatric surgery status (principal); K91.2 Postsurgical malabsorption, not elsewhere classified; Z90.3 Acquired absence of stomach [part of] ==

== ENCOUNTER → 2022-03-29 08:06 | Outpatient (BNVA) | payer OTHER, SELFPAY | PROVIDERS: PCP Internal Medicine; Visit Provider Physician Assistant Surgical | DX: E66.9 Obesity, unspecified (principal) ==

== ENCOUNTER → 2022-11-15 09:34 | Outpatient (BNVA) | payer OTHER, SELFPAY | PROVIDERS: PCP Internal Medicine; Visit Provider Physician Assistant Surgical | DX: E66.9 Obesity, unspecified (principal) ==

== ENCOUNTER → 2023-03-03 11:05 | Outpatient (BNVA) | payer OTHER, SELFPAY | PROVIDERS: PCP Internal Medicine; Visit Provider Physician Assistant Surgical | DX: Z13.89 Encounter for screening for other disorder (principal) ==

== ENCOUNTER → 2023-05-29 10:08 | Outpatient (BNVA) | payer OTHER, SELFPAY | PROVIDERS: PCP Internal Medicine; Visit Provider Physician Assistant Surgical ==

== ENCOUNTER 2023-07-27 09:57 | Outpatient (AMB) | payer OTHER, SELFPAY ==
--- NOTE | 2023-07-27 09:59 | A.OFFVIS_ITS ---
Intake VS Expanded 07/27/23 10:16 Height 5 ft 4.5 in Weight 196 lb 12.8 oz BMI 33.3 BP 159/86 H Blood Pressure Location Rt brachial Pulse 70 Pulse Source Pulse Oximeter Temp 97.1 F Temperature Source Tympanic Pulse Oximetry 93 Oxygen Delivery Method Room Air Body Fat 70.8 Body Fat Percentage 36.0 Free Fat Mass 125.8 Muscle Mass 119.4 Visceral Mass 9.0 Water Mass 89.6 BMR 1,707 Intake Visit Reasons: (OV) PO LSG 07/27/21 Allergies No Known Allergies Allergy (Verified 07/27/23 10:19) Medication List - Last Reconciled 07/27/23 by CHINTAN Daley amlodipine (Norvasc) 5 mg PO DAILY biotin 10,000 mcg PO DAILY clotrimazole 1% 1 appl topical BID losartan 50 mg PO DAILY metformin 500 mg PO DAILY multivitamin 1 tab PO DAILY HPI HPI Comments History of Present Illness Details This?is a?53?yo female who is s/p LSG 07/27/2021. Presents for 2 year month post op visit. Weight at last visit on 05/29/2023 was 202.6 pounds with a BMI of 34.2, weight today is 196.8 pounds, representing a 5.8 pound weight loss with a BMI today of 33.3.? No complaints of nausea, emesis, abdominal pain or reflux, or constipation. Present meal plan includes: 2 shakes and a meal, or one shake, one b ar/yogurt, and one meal Meals may include hamb[place] miriam and tossed vegetables with rice reports she is getting sugar cravings after she eats started metformin but is inconsistent, does not feel well/diarrhea with it Exercise routine includes: walking, 3x/week for 30 min Pt reports ongoing issues of excess skin of abdomen. Has tried clotrimazole after last visit to relieve itchy painful rashes but this has not completely res olved her issues. Notices that moisture collects in the skin fold and has unpleasant odor, has to wash frequently. Has to wear compressive pants with a tight waistband to hold the extra skin in place to prevent discomfort. Excess skin is uncomfortable when exercising as skin moves around a lot and makes exercise/walking more difficult. Did the patient ever have any of these conditions and are they resolved or still being treated? GERD: mild preop, improved SEAMUS:? never DM:? never HTN:? amlodipine, losartan Hyperlipidemia:? never Post op complications:? none PFSH Medical History COVID-19 vaccine series completed GERD (gastroesophageal reflux disease) Herpes Hypertension Morbid obesity Steatosis, liver Surgical History Hx of oophorectomy S/P cholecystectomy Hx of hysterectomy Family History Mother Hypertension Diabetes Kidney disease Father Prostate cancer Diabetes Hypertension Brother No problems noted. Sister Pre-diabetes Son No problems noted. Social History Household Members Other:: room mate Are you a primary cardiac care unit nurse to a significant other at home: No Do you presently have visiting nurse or other home services: No Alcohol intake: never Patient Tobacco Use Status: Never used Tobacco service: No Current occupational status: employed Physical Exam Vital Signs: Last Vital Signs Temp 97.1 F 07/27/23 10:16 Pulse 70 07/27/23 10:16 BP 159/86 H 07/27/23 10:16 Pulse Ox 93 07/27/23 10:16 Oxygen Delivery Method Room Air 07/27/23 10:16 BMI result Body Mass Index 33.3 Assessment & Plan Assessment & Plan (1) Obesity: Code(s): E66.9 - Obesity, unspecified (2) S/P laparoscopic sleeve gastrectomy: Code(s): Z98.84 - Bariatric surgery status Plan Pt has been successful in losing some weight since last visit but recognizes her sugar cravings are slowing her progress. We reviewed eating and drinking slowly. Suggested changing dinner meal from rice to fruit and gave food list. Ideally this would help minimize sugar cravings. Can also use sugar-free popsicles, sugar free Jello. She also recognizes she often doesn't have time for adequate exercise. Pt will have labs drawn. RTC 6 months per pt preference and encouraged her to reach out sooner if needed. Patient is obese and is not considered stable at this time. I spent a total of 30 minutes reviewing/updating records, examining the patient and counseling the patient on weight management as detailed above. Coding Level of Care Code Est Pt Level 4 (89502) Diagnoses Obesity E66.9 S/P laparoscopic sleeve gastrectomy Z98.84
[2023-07-27 10:16] VITALS: BP 159/86; PULSE 70; TEMP 36.2; O2SAT 93; BMI 33.3
== END 2023-07-27 10:53 | disposition home or self-care (01) ==
PROVIDERS: PCP Internal Medicine; Visit Provider Physician Assistant Surgical
DX: E66.9 Obesity, unspecified (principal); Z68.33 Body mass index [BMI] 33.0-33.9, adult; Z90.3 Acquired absence of stomach [part of]; Z98.84 Bariatric surgery status
CPT/HCPCS: 99214

== ENCOUNTER → 2023-07-27 09:57 | Outpatient (BNVA) | payer OTHER, SELFPAY | PROVIDERS: PCP Internal Medicine; Visit Provider Physician Assistant Surgical ==

== ENCOUNTER 2024-01-25 10:17 | Outpatient (AMB) | payer OTHER, SELFPAY ==
--- NOTE | 2024-01-25 10:36 | MHC.OFFVISWM ---
Intake VS Expanded 01/25/24 10:46 BP 177/83 H Blood Pressure Location Rt brachial Blood Pressure Position Sitting Pulse 74 Pulse Source Pulse Oximeter Temp 96.9 F Temperature Source Tympanic Pulse Oximetry 96 Oxygen Delivery Method Room Air Height 5 ft 4.5 in Weight 220 lb 3.2 oz BMI 37.2 Body Fat % 41.3 Body Fat Mass 90.8 Fat Free Mass 129.2 Visceral Fat Rating 12.0 Body Water % 41.8 Body Water Mass 92.0 Muscle Mass/Score 122.6 Basal Metabolic Rate/Score 1,782 Intake Visit Reasons: (OV) PO LSG 07/27/21 Allergies No Known Allergies Allergy (Verified 01/25/24 10:40) Medication List - Last Reconciled 01/25/24 by CHINTAN Daley amlodipine (Norvasc) 5 mg PO DAILY biotin 10,000 mcg PO DAILY clotrimazole 1% 1 appl topical BID losartan 50 mg PO DAILY metformin 500 mg PO DAILY multivitamin 1 tab PO DAILY HPI HPI Comments History of Present Illness Details This?is a?54?yo female who is s/p LSG 07/27/2021. Presents for 2.5 year post op visit. Weight at last visit on 07/27/2023 was 196.8 pounds with a BMI of 33.3, weight today is 220.2 pounds, representing a 23.4 pound weight gain with a BMI today of 37.2.? No complaints of nausea, emesis, abdominal pain or reflux, or constipation. Reports she has been stressed due to school, loss of job, loss of close family friend. Prescribed metformin but has not been taking regularly. Still having some sugar cravings. Present meal plan includes: 2 shakes and a meal, or one shake, one bar/yogurt, and one meal Meals may include hamb[place] miriam and tossed vegetables or fruit (recommended instead of rice at last visit) Exercise routine includes: walking, 3x/week for 30 min Pt reports ongoing issues of excess skin of abdomen. Has tried clotrimazole to relieve itchy painful rashes but this has not completely resolved her issues. Notices that moisture collects in the skin fold and has unpleasant odor, has to wash frequently. Has to wear compressive pants with a tight waistband to hold the extra skin in place to prevent discomfort. Excess skin is uncomfortable when exercising as skin moves around a lot and makes exercise/walking more difficult. [facility] Medical History (Updated 03/03/23 @ 11:41 by CHINTAN Daley) Steatosis, liver COVID-19 vaccine series completed GERD (gastroesophageal reflux disease) Herpes Hypertension Morbid obesity Surgical History (Updated 01/25/24 @ 10:58 by Noemy Lopes CMA) Hx of laparoscopic partial gastrectomy Hx of oophorectomy S/P cholecystectomy Hx of hysterectomy Family History Mother Hypertension Diabetes Kidney disease Father Prostate cancer Diabetes Hypertension Brother No problems noted. Sister Pre-diabetes Son No problems noted. Social History Household Members Other:: room mate Are you a primary home care rn to a significant other at home: No Do you presently have visiting nurse or other home services: No Alcohol intake: never Patient Tobacco Use Status: Never used Tobacco service: No Current occupational status: employed Assessment & Plan Assessment & Plan (1) Obesity: Code(s): E66.9 - Obesity, unspecified (2) S/P laparoscopic sleeve gastrectomy: Code(s): Z98.84 - Bariatric surgery status (3) Excess skin: Code(s): L98.7 - Excessive and redundant skin and subcutaneous tissue Plan Pt encouraged to get adequate protein in meal plan each day and since she has some extra time not working or in school, focus on increasing exercise. Will set up appt with as pt is dealing with a lot of stress/emotional eating and would like some tactics to help avoid. Labs ordered. Continue clotrimazole ointment for rashes of excess skin. Agreed to write letter to support use of GLP1 agonists which pt can provide to PCP or director of employee development. RTC 6 months. Patient is obese and is not considered stable at this time. I spent a total of 30 minutes reviewing/updating records, examining the patient and counseling the patient on weight management as detailed above. Orders: Orders Insulin Today Z98.84 - Bariatric surgery status Vitamin B12 and Folate Today Z98.84 - Bariatric surgery status Zinc Today Z98.84 - Bariatric surgery status C Reactive Protein Today Z98.84 - Bariatric surgery status TSH reflex Free T4 Today Z98.84 - Bariatric surgery status Vitamin D 25-OH Total Today Z98.84 - Bariatric surgery status Hemoglobin A1c Today Z98.84 - Bariatric surgery status Complete Blood Count Auto Diff Today Z98.84 - Bariatric surgery status Lipid Panel Today Z98.84 - Bariatric surgery status IRON PROFILE Today Z98.84 - Bariatric surgery status Comprehensive Met. Panel Today Z98.84 - Bariatric surgery status Vitamin B1 Today Z98.84 - Bariatric surgery status Vitamin A Today Z98.84 - Bariatric surgery status Ferritin Today Z98.84 - Bariatric surgery status Coding Level of Care Code Est Pt Level 4 (60309) Diagnoses Obesity E66.9 S/P laparoscopic sleeve gastrectomy Z98.84 Excess skin L98.7
[2024-01-25 10:46] VITALS: BP 177/83; PULSE 74; TEMP 36.1; O2SAT 96; BMI 37.2
== END 2024-01-25 10:59 | disposition home or self-care (01) ==
PROVIDERS: PCP Internal Medicine; Visit Provider Physician Assistant Surgical
DX: E66.9 Obesity, unspecified (principal); Z68.37 Body mass index [BMI] 37.0-37.9, adult; Z90.3 Acquired absence of stomach [part of]; Z98.84 Bariatric surgery status; L98.7 Excessive and redundant skin and subcutaneous tissue
CPT/HCPCS: 99214

== ENCOUNTER 2024-01-25 10:17 | Outpatient (REF) | payer OTHER, SELFPAY ==
[2024-01-25 11:26] LABS: MANUAL DIFF FLAG NO
[2024-01-25 11:50] LABS: Basophils Absolute Auto 0.1 X10*3/uL (0.0-0.2); Basophils Percent Auto 1.9 % (0-2); Eosinophils Absolute Auto 0.2 X10*3/uL (0.0-0.4); Eosinophils Percent Auto 3.6 % (0-4); Hematocrit 40.6 % (37.0-47.0); Hemoglobin 13.4 g/dl (12.0-16.0); Imm Gran Abs Auto 0.01 X10*3/uL (0.00-0.03); Imm Gran Pct Auto 0.2 % (0.0-0.4); Lymphocytes Absolute Auto 2.4 X10*3/uL (1.2-4.9); Lymphocytes Percent Auto 49.9 % (20-40); Mean Corpuscular Hemoglobin 26.9 pg (27.0-33.0); Mean Corpuscular Volume 81.4 fL (80.0-98.0); Mean Platelet Volume 10.8 fL (9.4-12.3); Monocytes Absolute Auto 0.4 X10*3/uL (0.1-1.2); Monocytes Percent Auto 7.6 % (2-11); Neutrophils Absolute Auto 1.8 x10*3/uL (2.0-8.3); Neutrophils Percent Auto 36.8 % (45-73); Platelet Count 339 X10*3/uL (160-400); Red Blood Count 4.99 X10*6/uL (4.20-5.50); White Blood Count 4.8 X10*3/uL (4.8-10.8)
[2024-01-25 12:04] LABS: Estimated Average Glucose 103 mg/dL; Hemoglobin A1c % 5.2 % (<6.0)
[2024-01-25 12:55] LABS: Folate 14.6 ng/mL (> or = 4.0); Vitamin B12 499 pg/mL (200-900)
[2024-01-25 17:41] LABS: Alanine Aminotransferase 17 U/L (0-31); Albumin Level 4.2 g/dL (3.5-5.0); Alkaline Phosphatase 71 U/L (39-117); Anion Gap 14 (12-20); Aspartate Amino Transferase 18 U/L (5-31); Bilirubin Total 0.9 mg/dL (0.0-1.0); Blood Urea Nitrogen 11 mg/dL (9-16); C Reactive Protein 0.63 mg/dL (< or = 0.50); Calcium 9.6 mg/dL (8.4-10.2); Carbon Dioxide 26 mmol/L (22-29); Chloride 106 mmol/L (96-108); Cholesterol 260 mg/dL (<200); Estimated Glomerular Filt Rate > 60; Glucose Random 78 mg/dL (60-115); HDL Cholesterol 76 mg/dL (>40); Iron 123 mcg/dL (30-160); LDL Cholesterol Calculated 157 mg/dL (<100); Percent Iron Saturation 43 % (15-50); Sodium 142 mmol/L (135-145); Total Iron Binding Capacity 289 mcg/dL (228-428); Total Protein 7.3 g/dL (6.5-8.0); Triglycerides 135 mg/dL (<150); Unsaturated Iron Binding 166 ug/dL
[2024-01-25 17:55] LABS: Ferritin 161 ng/mL (10-250); Insulin 7 uU/mL (2-29); TSH reflex Free T4 1.24 uIU/mL (0.32-4.0); Vitamin D 25-OH Total 19.1 ng/mL (>30)
[2024-01-28 13:23] LABS: Zinc 71 mcg/dL (60-130)
[2024-01-30 10:54] LABS: Vitamin A 62 mcg/dL (38-98)
[2024-01-30 15:28] LABS: Vitamin B1 14 nmol/L (8-30)
== END 2024-01-25 10:18 | disposition home or self-care (01) ==
LOC: HO.LAB 10:17
PROVIDERS: PCP Internal Medicine; Visit Provider Physician Assistant Surgical
DX: Z98.84 Bariatric surgery status (principal)
CPT/HCPCS: 36415; 80053; 80061; 82306; 82607; 82728; 82746; 83036; 83525; 83540; 84425; 84443; 84590; 84630; 85025; 86140; 99212

== ENCOUNTER 2024-07-29 09:58 | Outpatient (REF) | payer OTHER, SELFPAY ==
[2024-07-29 12:53] LABS: Vitamin D 25-OH Total 33.6 ng/mL (>30)
== END 2024-07-29 09:59 | disposition home or self-care (01) ==
LOC: HO.LAB 09:58
PROVIDERS: PCP Internal Medicine; Visit Provider Physician Assistant Surgical
DX: K91.2 Postsurgical malabsorption, not elsewhere classified (principal); Z90.3 Acquired absence of stomach [part of]; L98.7 Excessive and redundant skin and subcutaneous tissue; Z98.84 Bariatric surgery status
CPT/HCPCS: 36415; 82306; 99212

== ENCOUNTER 2024-07-29 09:58 | Outpatient (AMB) | payer OTHER, SELFPAY ==
--- NOTE | 2024-07-29 10:01 | A.OFFVIS_ITS ---
VS Expanded 07/29/24 10:06 BP 180/82 H Blood Pressure Location Rt brachial Blood Pressure Position Sitting Pulse 73 Pulse Source Pulse Oximeter Temp 96.6 F L Temperature Source Temporal Artery Scan Pulse Oximetry 96 Oxygen Delivery Method Room Air Height 5 ft 4.5 in Weight 212 lb BMI 35.8 Body Fat % 40.3 Body Fat Mass 85.4 Fat Free Mass 85.4 Visceral Fat Rating 11.0 Body Water % 42.5 Body Water Mass 90.0 Muscle Mass/Score 120.2 Basal Metabolic Rate/Score 1,739 Intake Visit Reasons: OV PO LSG 07/27/21 Allergies No Known Allergies Allergy (Verified 07/29/24 10:09) Medication List - Last Reconciled 07/29/24 by CHINTAN Daley amlodipine (Norvasc) 5 mg PO DAILY biotin 10,000 mcg PO DAILY cholecalciferol (vitamin D3) 125 mcg PO DAILY clotrimazole 1% 1 appl topical BID losartan 50 mg PO DAILY multivitamin 1 tab PO DAILY HPI Comments Details: This?is a?54?yo female who is s/p LSG 07/27/2021. Presents for 3 year post op visit. Weight at last visit on 01/25/2024 was 220.2 pounds with a BMI of 37.2, weight today is 212 pounds, representing a 8.2 pound weight loss with a BMI today of 35.8.? No complaints of nausea, emesis, abdominal pain or reflux, or constipation. Did not take her BP meds this morning. Recently had losartan dose increased last month. No longer on metformin, considering discussing again with endocrinology. Seeing her community therapist, finds them helpful. Present meal plan includes: 2 shakes and a meal, or one shake, one bar/yogurt, and one meal Meals may include hamb[place] miriam and tossed vegetables or fruit (recommended instead of rice at last visit) Exercise routine includes: walking, 3x/week for 30 min Pt reports ongoing issues of excess skin of abdomen. Has tried clotrimazole to relieve itchy painful rashes but this has not completely resolved her issues. Notices that moisture collects in the skin fold and has unpleasant odor, has to wash frequently. Has to wear compressive pants with a tight waistband to hold the extra skin in place to prevent discomfort. Excess skin is uncomfortable when exercising as skin moves around a lot and makes exercise/walking more difficult. [facility] Medical History (Updated 03/03/23 @ 11:41 by CHINTAN Daley) Steatosis, liver COVID-19 vaccine series completed GERD (gastroesophageal reflux disease) Herpes Hypertension Morbid obesity Surgical History Hx of laparoscopic partial gastrectomy Hx of oophorectomy S/P cholecystectomy Hx of hysterectomy Family History Mother Hypertension Diabetes Kidney disease Father Prostate cancer Diabetes Hypertension Brother No problems noted. Sister Pre-diabetes Son No problems noted. Social History Household Members Other:: room mate Are you a primary patient care secretary to a significant other at home: No Do you presently have visiting nurse or other home services: No Alcohol intake: never Patient Tobacco Use Status: Never used Tobacco service: No Current occupational status: employed Physical Exam Vital Signs: Last Vital Signs Temp 96.6 F L 07/29/24 10:06 Pulse 73 07/29/24 10:06 BP 180/82 H 07/29/24 10:06 Pulse Ox 96 07/29/24 10:06 Oxygen Delivery Method Room Air 07/29/24 10:06 BMI result Body Mass Index 35.8 Assessment & Plan Assessment & Plan (1) Obesity: Code(s): E66.9 - Obesity, unspecified Category: Medical (2) S/P laparoscopic sleeve gastrectomy: Code(s): Z98.84 - Bariatric surgery status Category: Surgical (3) Excess skin: Code(s): L98.7 - Excessive and redundant skin and subcutaneous tissue Category: Medical Plan Continue same meal plan. Pt would like referreal to Dr. Chase's office to discu ss skin removal surgery. She will discuss resuming metformin with her endo. Take BP meds when she gets home. Continue clotrimazole ointment for rashes of excess skin. RTC 6 months. I spent a total of 30 minutes reviewing/updating records, examining the patient and counseling the patient on weight management as detailed above. Orders: Orders Vitamin D 25-OH Total Today K91.2 - Postsurgical malabsorption, not elsewhere classified, Z90.3 - Acquired absence of stomach [part of] Medications: Refilled clotrimazole 1% 1 appl topical BID 45 grams 3RF
[2024-07-29 10:06] VITALS: BP 180/82; PULSE 73; TEMP 35.9; O2SAT 96; BMI 35.8
== END 2024-07-29 10:32 | disposition home or self-care (01) ==
PROVIDERS: PCP Internal Medicine; Visit Provider Physician Assistant Surgical
DX: E66.9 Obesity, unspecified (principal); Z68.35 Body mass index [BMI] 35.0-35.9, adult; Z98.84 Bariatric surgery status; L98.7 Excessive and redundant skin and subcutaneous tissue
CPT/HCPCS: 99214

== ENCOUNTER 2024-12-26 09:54 | Outpatient (AMB) | payer OTHER, SELFPAY ==
--- NOTE | 2024-12-26 09:54 | MHC.OFFVISWM ---
VS Expanded 12/26/24 10:01 BP 169/92 H Blood Pressure Location Rt brachial Blood Pressure Position Sitting Pulse 71 Pulse Source Pulse Oximeter Temp 97.7 F Temperature Source Temporal Artery Scan Pulse Oximetry 99 Oxygen Delivery Method Room Air Height 5 ft 4.5 in Weight 210 lb 3.2 oz BMI 35.5 Body Fat % 40.9 Body Fat Mass 86.0 Fat Free Mass 124.2 Visceral Fat Rating 11.0 Body Water % 42.1 Body Water Mass 88.4 Muscle Mass/Score 118.0 Basal Metabolic Rate/Score 1,710 Intake Visit Reasons: OV PO LSG 07/27/21 Allergies No Known Allergies Allergy (Verified 12/26/24 10:07) HPI Comments Details: This?is a?54?yo female who is s/p LSG 07/27/2021. Presents for 3.5 year post op visit. Weight at last visit on 07/29/2024 was 212 pounds; weight today is 210.2 pounds, representing a 1.2 pound weight loss with a BMI today of 35.5.? No complaints of nausea, emesis, abdominal pain or reflux, or constipation. Has a lot of job stress. Did take her BP meds this morning but is often inconsistent with timing. Takes 75 mg (1.5 pills) losartan. Present meal plan includes: 2 shakes and a meal, or one shake, one bar/yogurt, and one meal Meals may include hamburg miriam and tossed vegetables or fruit (recommended instead of rice at last visit) Exercise routine includes: walking, 3x/week for 30 min but more difficult in cold weather Pt reports ongoing issues of excess skin of abdomen. Has tried clotrimazole to relieve itchy painful rashes but this has not completely resolved her issues. Notices that moisture collects in the skin fold and has unpleasant odor, has to wash frequently. Has to wear compressive pants with a tight waistband to hold the extra skin in place to prevent discomfort. Excess skin is uncomfortable when exercising as skin moves around a lot and makes exercise/walking more difficult. [facility] Medical History (Updated 03/03/23 @ 11:41 by CHINTAN Daley) Steatosis, liver COVID-19 vaccine series completed GERD (gastroesophageal reflux disease) Herpes Hypertension Morbid obesity Surgical History Hx of laparoscopic partial gastrectomy Hx of oophorectomy S/P cholecystectomy Hx of hysterectomy Family History Mother Hypertension Diabetes Kidney disease Father Prostate cancer Diabetes Hypertension Brother No problems noted. Sister Pre-diabetes Son No problems noted. Social History Household Members Other:: room mate Are you a primary post anesthesia care unit nurse to a significant other at home: No Do you presently have visiting nurse or other home services: No Alcohol intake: never Patient Tobacco Use Status: Never used Tobacco service: No Current occupational status: employed Physical Exam Vital Signs: Last Vital Signs Temp 97.7 F 12/26/24 10:01 Pulse 71 12/26/24 10:01 BP 169/92 H 12/26/24 10:01 Pulse Ox 99 12/26/24 10:01 Oxygen Delivery Method Room Air 12/26/24 10:01 BMI result Body Mass Index 35.5 Assessment & Plan Assessment & Plan (1) S/P laparoscopic sleeve gastrectomy: Code(s): Z98.84 - Bariatric surgery status Category: Surgical (2) Obesity: Code(s): E66.9 - Obesity, unspecified Category: Medical (3) Excess skin: Code(s): L98.7 - Excessive and redundant skin and subcutaneous tissue Category: Medical Plan Pt interested in trialing GLP1 agonist. Will order Zepbound. Discussed need for adequate protein intake while on GLP1s as well as frequent communication with our office. Pt will check in with me weekly and is aware that subsequent Rx will be dependent on frequent communication. Texted pt my phone number. She is in agreement. RTC 3 months. I spent a total of 30 minutes reviewing/updating records, examining the patient and counseling the patient on weight management as detailed above. Medications: New tirzepatide (weight loss) (Zepbound) for 4 weeks 2.5 mg (0.5 mL) subcut QWEEK 4 weeks 2 mL 0RF
--- OUTSIDE RECORDS SUMMARY | 2024-12-26 09:58 | XMS_ITS | Encounter Summary ---
Author Organization [facility] Address [address] [place] [address] Care Team Providers Care Medical And Health Services Manager Name Role Phone Farhad Moreno MD Primary Care Provider Reason for Referral * Imaging (Routine) - Closed Specialty Diagnoses / Procedures Referred By Contac t Referred To Contact Radiology Diagnoses Encounter for screening mammogram for breast cancer Procedures MG Mammo Digital Screening w Ricky bilat [facility], Self Referral [facility] Referral ID Status Reason Start Date Expiration Date Visits Re quested Visits Authorized [id number] Closed 12/04/2024 12/04/2025 1 1 * Imaging (Routine) - Closed Specialty Diagnoses / Procedures Referred By Contac t Referred To Contact Radiology Diagnoses Encounter for screening mammogram for breast cancer Procedures MG Mammo Digital Screening w Ricky bilat [facility], Self Referral [facility] Referral ID Status Reason Start Date Expiration Date Visits Re quested Visits Authorized [id number] Closed 12/04/2024 12/04/2025 1 1 Reason for Visit * Imaging (Routine) - Closed Specialty Diagnoses / Procedures Referred By Contac t Referred To Contact Radiology Diagnoses Encounter for screening mammogram for breast cancer Procedures MG Mammo Digital Screening w Ricky bilat [facility], Self Referral [facility] Referral ID Status Reason Start Date Expiration Date Visits Re quested Visits Authorized [id number] Closed 12/04/2024 12/04/2025 1 1 Encounter Details Date Type Department Care Team (Latest Contact Info) Description 12/06/2024 9:32 AM EST - 12/06/2024 11:59 PM EST Hospital Encounter [facility] [address] [address] Encounter for screening mammogram for breast cancer Discharge Disposition: Home or Self Care Social History Tobacco Use Types Packs/Day Years Used Date Smoking Tobacco: Never Smokeless Tobacco: Never Alcohol Use Standard Drinks/Week Comments Yes 0 (1 standard drink = 0.6 oz pur e alcohol) Sex and Gender Information Value Date Recorded Sex Assigned at Female 10/29/2024 7:36 PM EST Gender Identity Female 10/29/2024 7:36 PM EST Sexual Orientation Straight 10/29/2024 7: 36 PM EST Job Start Date Occupation Industry Not on file Not on file Not on file documented as of this encounter Last Filed Vital Signs Vital Sign Reading Time Taken Comments Blood Pressure - - Pulse - - Temperature - - Respiratory Rate - - Oxygen Saturation - - Inhaled Oxygen Concentration - - Weight 95.3 kg (210 lb) 12/06/2024 10:00 AM EST Height 167.6 cm (5' 6 ) 12/06/2024 10:00 AM EST Body Mass Index 33.89 12/06/2024 10:00 AM EST documented in this encounter Medications at Time of Discharge Medication Sig Dispensed Refills Start Date End Date amLODIPine (NORVASC) 5 mg tablet Take 1 tablet (5 mg total) by mouth 1 (one) time each day. 02/01/2024 bisacodyL (DULCOLAX) 5 mg EC tablet Take 2 tabs by mouth right before beginning bowel prep. Follow instructions given by office for timing. 02/14/2024 diclofenac (VOLTAREN) 1 % topical gel Apply 2 g topically 4 times daily. Shoulder Pain 09/21/2023 estradioL (ESTRACE) 0.01 % (0.1 mg/gram) vaginal cream Insert 0.5 g into the vagina 3 (three) times a week. Mon/Wed/Fri 42.5 g 1 10/09/2024 fluticasone propionate (FLONASE) 50 mcg/actuation nasal spray 2 Sprays by Nasal route daily. 06/09/2022 losartan (COZAAR) 50 mg tablet Take 1.5 tablets (75 mg total) by mouth 1 (one) time each day. 04/30/2024 polyethylene glycol (GoLYTELY) 236-22.74-6.74 -5.86 gram solution Take 240 mL by mouth once for 1 dose. Take 4L by mouth once for one dose. May substitue any PEG. Starting at 6PM the night before your procedure drink 1 8oz glasses at your own pace until rectals run clear. 02/14/2024 polyethylene glycol (GoLYTELY) 236-22.74-6.74 -5.86 gram solution Take 4 L by mouth once for 1 dose. (May substitute any PEG) Mix prep according to directions. Starting at 6pm the night before your procedure, drink one 8oz glass at your own pace until your rectals run clear. 11/22/2022 valACYclovir (VALTREX) 500 mg tablet Take 1 Tab by mouth 2 times daily. TAKE ONE TABLET BY MOUTH TWICE DAILY 06/13/2018 documented as of this encounter Discharge Disposition Disposition Code Departure Means Destination Home or Self Care documented in this encounter Plan of Treatment Upcoming Encounters Date Type Department Care Team (Late st Contact Info) Description 01/24/2025 9:45 AM EST Office Visit Obstetrics & Gynecology - [address] [id number] Joana Sim, [facility] [address] [place] [phone] documented as of this encounter Procedures Procedure Name Priority Date/Time Associated Diagnosis Comments MG MAMMO DIGITAL SCREENING W RICKY BILAT Routine 12/06/2024 10:14 AM EST Encounter for screening mammogram for breast cancer documented in this encounter Results * MG Mammo Digital Screening w Ricky bilat (12/06/2024 10:14 AM EST) Anatomical Region Laterality Modality Breast Bilateral Mammography 12/09/2024 12:2 2 PM EST Impressions 12/09/2024 12:33 PM EST No mammographic evidence of malignancy. ?? No suspicious interval change. A negative mammogram in the presence of a clinically suspicious palpable abnormality does not preclude the possibility of malignancy or alter the indications for biopsy. ASSESSMENT: ?? BI-RADS 1: NEGATIVE RECOMMENDATION(S): 1: Routine screening mammogram BILATERAL in 1 year. -------- FINAL REPORT -------- Dictated By: Joel Mix Dictated Date: 12/09/2024 12:22 ET Assigned Physician: Joel Mix Reviewed and Electronically Signed By: Joel Mix Signed Date: 12/09/2024 12:33 ET Workstation ID: [id number] Transcribed By: Self Edit Transcribed Date: 12/09/2024 12:22 ET Narrative 12/09/2024 12:33 PM EST EXAM: ??SCREENING MAMMOGRAPHY, BILATERAL HISTORY: ??SCREENING. ??Maternal aunt diagnosed with breast cancer age 47. ??Maternal great aunt diagnosed with ovarian cancer age 55. ??Maternal great grandmother diagnosed with breast cancer. COMPARISON: ??04/06/2019, 03/10/2018, 03/04/2017 TECHNIQUE: Synthesized CC and MLO projections of each breast. ??Tomosynthesis of each breast in the CC and MLO projections. ADDITIONAL IMAGING: None Computer-aided detection was employed with the iCAD ??profound AI 3-D. TISSUE DENSITY: There are scattered areas of fibroglandular density. (BI-RADS category B) FINDINGS: RIGHT BREAST: No suspicious mass. No suspicious calcification. No distortion. ?? No additional suspicious right breast findings LEFT BREAST: No suspicious mass. No suspicious calcification. No distortion. ?? No additional suspicious left breast findings Procedure Note Joel Mix MD - 12/09/2024 EXAM: SCREENING MAMMOGRAPHY, BILATERAL HISTORY: SCREENING. Maternal aunt diagnosed with breast cancer age 47.Maternal great aunt diagnosed with ovarian cancer age 55. Maternal greatgrandmother diagnosed with breast cancer. COMPARISON: 04/06/2019, 03/10/2018, 03/04/2017 TECHNIQUE: Synthesized CC and MLO projections of each breast.Tomosynthesis of each breast in the CC and MLO projections. ADDITIONAL IMAGING: None Computer-aided detection was employed with the iCAD profound AI 3-D. TISSUE DENSITY: There are scattered areas of fibroglandular density.(BI-RADS category B) FINDINGS: RIGHT BREAST: No suspicious mass. No suspicious calcification. No distortion. Noadditional suspicious right breast findings LEFT BREAST: No suspicious mass. No suspicious calcification. No distortion. Noadditional suspicious left breast findings IMPRESSION: No mammographic evidence of malignancy. No suspicious interval change. A negative mammogram in the presence of a clinically suspicious palpableabnormality does not preclude the possibility of malignancy or alter theindications for biopsy. ASSESSMENT: BI-RADS 1: NEGATIVE RECOMMENDATION(S): 1: Routine screening mammogram BILATERAL in 1 year. -------- FINAL REPORT -------- Dictated By: Joel Mix Dictated Date: 12/09/2024 12:22 ET Assigned Physician: Joel Mix Reviewed and Electronically Signed By: Joel Mix Signed Date: 12/09/2024 12:33 ET Workstation ID: [id number] Transcribed By: Self Edit Transcribed Date: 12/09/2024 12:22 ET Self Referral [facility] IMG BI PROCEDURES documented in this encounter Visit Diagnoses Diagnosis Encounter for screening mammogram for breast cancer documented in this encounter Care Teams Medical And Health Services Manager Relationship Specialty Start Date End Date Farhad Moreno MD [address] [place] [address] PCP - General Internal Medicine 06/09/22 documented as of this encounter
--- OUTSIDE RECORDS SUMMARY | 2024-12-26 09:58 | XMS_ITS | Encounter Summary ---
Author Organization [facility] Address [address] [place] [address] Care Team Providers Care Pulp Tester Name Role Phone Farhad Moreno MD Primary Care Provider [phone] Reason for Visit * Reason Onset Date Comments Low Back Pain 10/29/2024 Encounter Details Date Type Department Care Team (Late st Contact Info) Description 10/29/2024 Nurse Triage Adult Medicine [address] [phone] Farhad Moreno MD [address] [place] [id number] Low Back Pain Social History Tobacco Use Types Packs/Day Years [...] on file documented as of this encounter Progress Notes * Anabel Cooper RN - 10/29/2024 11:48 AM EST Reason for Disposition [1] MODERATE back pain (e.g., interferes with normal activities) AND [2] present > 3 days Answer Assessment - Initial Assessment Questions 1. ONSET: When did the pain begin? (e.g., minutes, hours, days) Pt woke up with pain on Monday 2. LOCATION: Where does it hurt? (upper, mid or lower back) Lower back 3. SEVERITY: How bad is the pain? (e.g., Scale 1-10; mild, moderate, or severe) - MILD (1-3): Doesn't interfere with normal activities. - MODERATE (4-7): Interferes with normal activities or awakens from sleep. - SEVERE (8-10): Excruciating pain, unable to do any normal activities. Moderate 4. PATTERN: Is the pain constant? (e.g., yes, no; constant, intermittent) Is constant 5. RADIATION: Does the pain shoot into your legs or somewhere else? Right thoracic with no radiation 6. CAUSE: What do you think is causing the back pain? Unknown 7. BACK OVERUSE: Any recent lifting of heavy objects, strenuous work or exercise? None 8. MEDICINES: What have you taken so far for the pain? (e.g., nothing, acetaminophen, NSAID'S) NSAID not helping 9. NEUROLOGIC SYMPTOMS: Do you have any weakness, numbness, or problems with bowel/bladder control? None 10. OTHER SYMPTOMS: Do you have any other symptoms? (e.g., fever, abdomen pain, burning with urination, blood in urine) Pt has no chest pain or SOB, denies any N/V/D or fever, no abd pain, has pain in the right side of the mid back / flank with no radiation, no changes in urination or in bowel habits, no numbness or tingling in the legs, has nl CSM, pt does not c/o dizziness, 11. : Is there any chance you are ? When was your last menstrual period? No Protocols used: Back Pain-A-AH * Thierry Dale - 10/29/2024 11:18 AM EST Patient reporting severe sharp pain in her lower right back side for the past 3 days. Reports no other symptoms. States she has had no relief with over the counter medication or hot/cold treatment. States it is keeping her from sleep and is painful while moving. Patient looking to be seen oleg. documented in this encounter Plan of Treatment Upcoming Encounters Date Type Department Care Team (Late st Contact Info) Description 01/24/2025 9:45 AM EST Office Visit Obstetrics & Gynecology - [address] [phone] Joana Sim, [facility] [address] [place] [address] documented as of this encounter Visit Diagnoses Not on filedocumented in this encounter Care Teams Pulp Tester Relationship Specialty Start Date End Date Farhad Moreno MD [address] [place] [address] PCP - General Internal Medicine 06/09/22 documented as of this encounter
--- OUTSIDE RECORDS SUMMARY | 2024-12-26 09:58 | XMS_ITS | Clinical Summary ---
Author Organization [facility] [address] [facility] [address] Address [address] [place] [address] Phone Care Team Providers Care Sr. Payroll Manager Name Role Phone Farhad Moreno MD Primary Care Provider Allergies Active Allergy Reactions Criticality Noted Date Comments Codeine Itching 10/09/2024 Oxycodone Itching 10/09/2024 Povidone-Iodine Dermatitis,Rash 10/09/2024 Medications Medication Sig Dispensed Refills Start Date End Date Status estradioL (ESTRACE) 0.01 % (0.1 mg/gram) vaginal cream Insert 0.5 g into the vagina 3 (three) times a week. Mon/Wed/Fri 42.5 g 1 10/09/2024 Active Additional Information Patient not taking.Reported on 10/30/2024 amLODIPine (NORVASC) 5 mg tablet Take 1 tablet (5 mg total) by mouth 1 (one) time each day. 02/01/2024 Active bisacodyL (DULCOLAX) 5 mg EC tablet Take 2 tabs by mouth right before beginning bowel prep. Follow instructions given by office for timing. 02/14/2024 Active diclofenac (VOLTAREN) 1 % topical gel Apply 2 g topically 4 times daily. Shoulder Pain 09/21/2023 Active fluticasone propionate (FLONASE) 50 mcg/actuation nasal spray 2 Sprays by Nasal route daily. 06/09/2022 Active polyethylene glycol (GoLYTELY) 236-22.74-6.74 -5.86 gram solution Take 240 mL by mouth once for 1 dose. Take 4L by mouth once for one dose. May substitue any PEG. Starting at 6PM the night before your procedure drink 1 8oz glasses at your own pace until rectals run clear. 02/14/2024 Active polyethylene glycol (GoLYTELY) 236-22.74-6.74 -5.86 gram solution Take 4 L by mouth once for 1 dose. (May substitute any PEG) Mix prep according to directions. Starting at 6pm the night before your procedure, drink one 8oz glass at your own pace until your rectals run clear. 11/22/2022 Active valACYclovir (VALTREX) 500 mg tablet Take 1 Tab by mouth 2 times daily. TAKE ONE TABLET BY MOUTH TWICE DAILY 06/13/2018 Active losartan (COZAAR) 50 mg tablet Take 1.5 tablets (75 mg total) by mouth 1 (one) time each day. 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 She will try this. Vulvar atrophy 11/05/2018 HTN (hypertension) 05/06/2015 Dyslipidemia 11/21/2013 Microcytic anemia 11/21/2013 Vitamin D deficiency 11/21/2013 Encounters Date Type Department Care Team Description 12/06/2024 9:32 AM EST - 12/06/2024 11:59 PM EST [facility] [address] [address] Encounter for screening mammogram for breast cancer Discharge Disposition: Home or Self Care 11/01/2024 8:15 AM EST - 11/01/2024 11:59 PM EST Hospital Encounter CT Scan - [address] [phone] Urinary frequency; Right flank pain Discharge Disposition: Home or Self Care 10/30/2024 11:30 AM EST Office Visit [facility] [place] - [address] [phone] Meghna Dacosta PA Right flank pain (Primary Dx); Urinary frequency; Transaminitis 10/29/2024 4:30 PM EST - 10/29/2024 11:01 PM EST Emergency [facility] Emergency [address] [place] [address] Discharge Disposition: Left Against Medical Advice 10/29/2024 Nurse Triage Adult Medicine [address] [address] Farhad Moreno MD Low Back Pain from Last 3 Months Immunizations Name Administration Dates Next Due Influenza trivalent, 0.5mL, preservative free (Fluarix; FluLaval; Fluzone) ages 6mo and older (Afluria) 3 years and older 09/11/2019,08/31/2018,09/05/2017,09/06,09/09/2015 Pneumococcal polysaccharide 23 valent (Pneumovax 23) 2yo and older 02/06/2007 Tdap Tetanus diptheria acell ular pertussis (Boostrix; Adacel) 7yo and older 02/01/2024,11/20/2010 Varicella live (Varivax) 12m o and older 02/03/2014 Surgical History Surgery Date Site/Laterality Comments OOPHORECTOMY Bilateral PROCEDURE: HISTORICAL OOPHORECTOMY; COMMENT: Right, midline incision, [facility] CHOLECYSTECTOMY PROCEDURE: HISTORICAL CHOLECYSTECTOMY; COMMENT: laparoscopic HYSTEROSCOPY 07/10/2014 PROCEDURE: GA HYSTEROSCOPY BX ENDOMETRIUM&/POLYPC W/WO D&C OTHER SURGICAL HISTORY PROCEDURE: GA DILATION & CURETTAGE DX&/THER NONOBSTETRIC OTHER SURGICAL HISTORY 07/2014 PROCEDURE: GA HYSTEROSCOPY ENDOMETRIAL ABLATION OTHER SURGICAL HISTORY 01/19/2017 PROCEDURE: GA DILATION & CURETTAGE DX&/THER NONOBSTETRIC; COMMENT: Missed ab HYSTERECTOMY 03/12/2018 PROCEDURE: HISTORICAL TOTAL HYSTERECTOMY WITH BSO; COMMENT: fibroids, endometriosis Medical History Medical History Date Comments HTN (hypertension) DX:HTN (hyper tension) Genital herpes DX:Genital herpe s Endometriosis DX:Endometriosis Ovarian cyst DX:Ovarian cyst; COMMENT: s/p oopherectomy at [facility] BRCA1 gene mutation negative Family History Medical History Relation Name Comments No Known Problems Aunt 1 Breast cancer Aunt 2 47 unilateral; ma ternal aunt No Known Problems Brother Diabetes Father htn, prostate c ancer dx at 60 Hypertension Father Prostate cancer Father Breast cancer Father's side Great grandma paternal gr grandmother; ? age at dx Coronary artery disease Maternal Grandfather Prostate cancer Maternal Grandfather in his 70s heart disease Diabetes Maternal Grandmother Glaucoma Maternal Grandmother alive a t age 93, 2014; diabetes, HTN Hypertension Maternal Grandmother COPD Mother Diabetes Mother htn, cva, COPD; alive at age 67, 2015 Hypertension Mother Stroke Mother Ovarian cancer Mother's side 1 great aunt maternal g r aunt; dx > 50 Other: cancer,other Mother's side 2 Cousin mater nal first cousin; ? primary Other: Other Paternal Grandfather in his late 60s ? cause Other: Other Paternal Grandmother at age 99 ? cause No Known Problems Sister No Known Problems Uncle 1 Brain Aneurysm Uncle 2 maternal uncl e at 60 Blindness Neg Hx Cataracts Neg Hx Colon cancer Neg Hx Macular degeneration Neg Hx Pancreatic cancer Neg Hx Strabismus Neg Hx Uterine cancer Neg Hx Relation Name Status Comments Aunt 1 Aunt 2 47 Brother Father Alive Father's side Great grandma Maternal Grandfather Maternal Grandmother Mother Alive Mother's side 1 great aunt Mother's side 2 Cousin Paternal Grandfather Paternal Grandmother Sister Uncle 1 Uncle 2 Social History Tobacco Use Types Packs/Day Years Used Date Smoking Tobacco: Never Smokeless Tobacco: Never Tobacco Cessation:Counseling Given: Not Answered Alcohol Use Standard Drinks/Week Comments Yes 0 (1 standard drink = 0.6 oz pur e alcohol) Sex and Gender Information Value Date Recorded Sex Assigned at Female 10/29/2024 7:36 PM EST Gender Identity Female 10/29/2024 7:36 PM EST Sexual Orientation Straight 10/29/2024 7: 36 PM EST Job Start Date Occupation Industry Not on file Not on file Not on file Obstetrics History Para Term AB IAB SAB Ectopic Multiple Livin g Live Births 1 Last Filed Vital Signs Vital Sign Reading Time Taken Comments Blood Pressure 108/56 10/30/2024 11:35 AM EST Pulse 56 10/30/2024 11:35 AM EST Temperature 36.7 ??C (98 ??F) 10/30/2024 11:35 AM EST Respiratory Rate 16 10/30/2024 11:35 AM EST Oxygen Saturation 98% 10/29/2024 8:43 PM EST Inhaled Oxygen Concentration - - Weight 95.3 kg (210 lb) 12/06/2024 10:00 AM EST Height 167.6 cm (5' 6 ) 12/06/2024 10:00 AM EST Body Mass Index 33.89 12/06/2024 10:00 AM EST Plan of Treatment Upcoming Encounters Date Type Department Care Team (Late st Contact Info) Description 01/24/2025 9:45 AM EST Office Visit Obstetrics & Gynecology - [address] [phone] Joana Sim, CNM [address] [place] [address] Health Maintenance Due Date Last Done Comments Hepatitis B Vaccines (1 of 3 - 19+ 3-dose series) 1990 Zoster Vaccines (1 of 2) 2021 02/03/2014 Social Influencers of Health Screening 10/29/2022 Cervical Cancer Screening: Pap Smear 05/07/2023 05/07/2020 COVID-19 Vaccine ( season) 2024 04/08/2021, 03/18/2021 Influenza Vaccine (#1) 2024 9, 08/31/2018, 09/05/2017, Additional history exists Depression Screening 01/31/2025 02/01/2024 Hypertension/CHF/CAD Annual BMP Blood Test 10/29/2025 10/29/2024, 2023, 08/02/2019 Breast Cancer Screening 12/06/2026 12/06/19, 04/06/2019, 03/10/2018, Additional history exists Cholesterol Screening (Lipid Panel) 2028 2023 DTaP,Tdap,and Td Vaccines (3 - Td or Tdap) 01/31/2034 02/01/2024, 11/20/2010 Colorectal Cancer Screening: Colonoscopy 02/27/2034 02/28/2024 Pneumococcal Vaccine: Pediatrics (0 to 5 Years) and At-Risk Patients (6 to 64 Years) Aged Out 02/06/2007 No longer eligible based on patient's age to complete this topic Varicella Vaccines Aged Out 02/03/2014 No longer eligible based on patient's age to complete this topic HIV Screening Completed 12/13/2023 Hepatitis C Screening Completed 12/13/2023 HIB Vaccines Aged Out No longer eligi ble based on patient's age to complete this topic HPV Vaccines Aged Out No longer eligi ble based on patient's age to complete this topic Hepatitis A Vaccines Aged Out No long er eligible based on patient's age to complete this topic IPV Vaccines Aged Out No longer eligi ble based on patient's age to complete this topic MMR Vaccines Aged Out No longer eligi ble based on patient's age to complete this topic Meningococcal ACWY Vaccine Aged Out N o longer eligible based on patient's age to complete this topic RSV Immunization Patients Under 20 months Aged Out No longer eligible based on patient's age to complete this topic Procedures Procedure Name Priority Date/Time Associated Diagnosis Comments MG MAMMO DIGITAL SCREENING W RICKY BILAT Routine 12/06/2024 10:14 AM EST Encounter for screening mammogram for breast cancer CT ABDOMEN PELVIS WO CONTRAST Routine 11/01/2024 11:27 AM EST Urinary frequency Right flank pain NAJERA URINE CULTURE TUBE Routine 10/30/2024 12:12 PM EST Urinary frequency Right flank pain URINALYSIS WITH REFLEX MICROSCOPIC AND CULTURE Routine 10/30/2024 12:12 PM EST Urinary frequency Right flank pain URINALYSIS WITH REFLEX MICROSCOPIC AND CULTURE Routine 10/30/2024 12:12 PM EST Urinary frequency Right flank pain CULTURE URINE Routine 10/30/2024 12:12 PM EST Urinary frequency Right flank pain CBC WITH AUTO DIFFERENTIAL STAT 10/29/2024 7:28 PM EST COMPREHENSIVE METABOLIC PANEL STAT 10/29/2024 7:28 PM EST CBC AND DIFFERENTIAL STAT 10/29/2024 7:28 PM EST POC , URINE DIAGNOSTIC STAT 10/29/2024 4:45 PM EST NAJERA URINE CULTURE TUBE STAT 10/29/2024 4:43 PM EST URINALYSIS WITH REFLEX MICROSCOPIC AND CULTURE STAT 10/29/2024 4:43 PM EST URINALYSIS WITH REFLEX MICROSCOPIC AND CULTURE STAT 10/29/2024 4:43 PM EST CULTURE URINE STAT 10/29/2024 4:43 PM EST HM COLONOSCOPY Routine 02/28/2024 DEPRESSION SCREENING Routine 02/01/2024 HEPATITIS C SCREENING Routine 12/13/2023 HIV SCREENING Routine 12/13/2023 LIPID PANEL Routine 2023 HM PAP SMEAR Routine 05/07/2020 from Last 3 Months or Most Recently Relevant to Health Maintenance Results * MG Mammo Digital Screening w [...] Signed Date: 12/09/2024 12:33 ET Workstation ID: [id number] Transcribed By: Self Edit Transcribed Date: 12/09/2024 [...] Signed Date: 12/09/2024 12:33 ET Workstation ID: [id number] Transcribed By: Self Edit Transcribed Date: 12/09/2024 12:22 ET Self Referral Sppl IMG BI PROCEDURES * CT Abdomen Pelvis wo Contrast (11/01/2024 11:27 AM EST) Anatomical Region Laterality Modality Body Computed Tomogra phy 11/01/2024 12:2 1 PM EST Impressions 11/02/2024 1:17 PM EST No urinary tract stones or obstructive uropathy. ??No evidence of an acute abdominal or pelvic process. POS - [id number] -------- FINAL REPORT -------- Dictated By: Linda Schneider Dictated Date: 11/01/2024 12:21 ET Assigned Physician: Linda Schneider Reviewed and Electronically Signed By: Linda Schneider Signed Date: 11/02/2024 13:17 ET Workstation ID: [id number] Transcribed By: Self Edit Transcribed Date: 11/01/2024 12:46 ET Narrative 11/02/2024 1:17 PM EST EXAM: CT abdomen and pelvis HISTORY: Right flank pain. ??Urinary frequency. ??Evaluate for nephrolithiasis. COMPARISON: 01/01/2018 TECHNIQUE: CT of the abdomen and pelvis without oral or intravenous contrast. Coronal and sagittal reformatted images were generated. The radiation dose total CTDIvol: 20.08 mGy. FINDINGS: Limited assessment of solid organs without IV contrast. ?? Lower thorax: No infiltrate in the basal lungs. ??No pleural or pericardial effusions. Liver: No abnormality detected. Gallbladder/biliary tree: Cholecystectomy clips. ??Common bile duct does not appear dilated. Spleen: No abnormality detected. Pancreas: No abnormality detected. Adrenal glands: No masses. Kidneys/ureters: ??No hydronephrosis or perinephric fat stranding. ??No renal or ureteral stones. ??2.0 cm cyst in the right lower kidney. Vasculature: No abdominal aortic aneurysm. Peritoneum: No evidence of free intraperitoneal air, free fluid, or organized collection. Lymph nodes: No lymphadenopathy detected. Bowel: Limited assessment of bowel without enteric contrast. ??No evidence of a bowel obstruction. ??No bowel inflammatory changes. ??Normal appendix. ??Postsurgical changes involving the stomach from sleeve gastrectomy. Body wall: Small fat-containing periumbilical hernia. ?? Bladder: Underdistended, which limits assessment. ??No stones apparent. Reproductive: Uterus and ovaries are surgically absent. Bones: Degenerative changes in the lumbar spine, most severe at L4-5. Procedure Note Linda Schneider MD - 11/02/2024 EXAM: CT abdomen and pelvis HISTORY: Right flank pain. Urinary frequency. Evaluate fornephrolithiasis. COMPARISON: 01/01/2018 TECHNIQUE: CT of the abdomen and pelvis without oral or intravenouscontrast. Coronal and sagittal reformatted images were generated. Theradiation dose total CTDIvol: 20.08 mGy. FINDINGS: Limited assessment of solid organs without IV contrast. Lower thorax: No infiltrate in the basal lungs. No pleural or pericardialeffusions. Liver: No abnormality detected. Gallbladder/biliary tree: Cholecystectomy clips. Common bile duct doesnot appear dilated. Spleen: No abnormality detected. Pancreas: No abnormality detected. Adrenal glands: No masses. Kidneys/ureters: No hydronephrosis or perinephric fat stranding. Norenal or ureteral stones. 2.0 cm cyst in the right lower kidney. Vasculature: No abdominal aortic aneurysm. Peritoneum: No evidence of free intraperitoneal air, free fluid, ororganized collection. Lymph nodes: No lymphadenopathy detected. Bowel: Limited assessment of bowel without enteric contrast. No evidenceof a bowel obstruction. No bowel inflammatory changes. Normal appendix.Postsurgical changes involving the stomach from sleeve gastrectomy. Body wall: Small fat-containing periumbilical hernia. Bladder: Underdistended, which limits assessment. No stones apparent. Reproductive: Uterus and ovaries are surgically absent. Bones: Degenerative changes in the lumbar spine, most severe at L4-5. IMPRESSION: No urinary tract stones or obstructive uropathy. No evidence of an acuteabdominal or pelvic process. POS - [id number] -------- FINAL REPORT -------- Dictated By: Linda Schneider Dictated Date: 11/01/2024 12:21 ET Assigned Physician: Linda Schneider Reviewed and Electronically Signed By: Linda Schneider Signed Date: 11/02/2024 13:17 ET Workstation ID: [id number] Transcribed By: Self Edit Transcribed Date: 11/01/2024 12:46 ET Meghna Faith Fred Dacosta PA IMG CT PROCEDURE S * (ABNORMAL) Urinalysis with reflex microscopic and culture (10/30/2024 12:12 PM EST) Only the most recent of2 resultswithin the time period is included. Specific [place] Urine >=1.030 1.003 - 1.030 LAB URINALYSIS - AUTOMATED METHOD 10/30/2024 2:17 PM [facility] pH, Urine 6.0 5.0 - 8.0 pH LAB URINALYSIS - AUTOMATED METHOD 10/30/2024 2:17 PM [facility] Leukocytes, Urine Negative Negative LAB URINALYSIS - AUTOMATED METHOD 10/30/2024 2:17 PM [facility] Nitrite, Urine Negative Negative LAB URINALYSIS - AUTOMATED METHOD 10/30/2024 2:17 PM [facility] Protein, Urine Trace <=Trace mg/dL LAB URINALYSIS - AUTOMATED METHOD 10/30/2024 2:17 PM [facility] Glucose, Urine Negative Negative mg/dL LAB URINALYSIS - AUTOMATED METHOD 10/30/2024 2:17 PM [facility] Ketones, Urine Trace(A) Negative mg/dL LAB URINALYSIS - AUTOMATED METHOD 10/30/2024 2:17 PM [facility] Urobilinogen, Urine 1.0 0.2 - 1.0 mg/dL LAB URINALYSIS - AUTOMATED METHOD 10/30/2024 2:17 PM [facility] Bilirubin, Urine Small(A) Negative LAB URINALYSIS - AUTOMATED METHOD 10/30/2024 2:17 PM [facility] Blood, Urine Trace(A) Negative LAB URINALYSIS - AUTOMATED METHOD 10/30/2024 2:17 PM EST [facility] RBC, Urine 2 /HPF 10/30/2024 2:17 PM [facility] WBC, Urine 10 /HPF 10/30/2024 2:17 PM [facility] Squamous Epithelial, Urine 10 /LPF 10/30/2024 2:17 PM [facility] Urine Urine specimen obtained by clean catch procedure / Unknown Non-blood Collection / Unknown 10/30/2024 12:12 PM EST 10/30/2024 12:12 PM EST Meghna Faithdylan Santoso Dacosta PA LAB URINE ORDERA BLES Performing Organization Address City/[facility]/ZIP Co de Phone Number [facility] [address] [place] [address], [place] [phone] * Najera urine culture tube (10/30/2024 12:12 PM EST) Only the most recent of2 resultswithin the time period is included. Extra Tube Hold for add-ons. 10/30/2024 3:01 PM [facility] Comment:Auto resulted. Urine Urine specimen obtained by clean catch procedure / Unknown Non-blood Collection / Unknown 10/30/2024 12:12 PM EST 10/30/2024 12:12 PM EST Meghna Faith Fred Dacosta PA LAB URINE ORDERA BLES Performing Organization Address City/[facility]/ZIP Co de Phone Number [facility] [address] [place] [address], [place] [phone] * Culture urine (10/30/2024 12:12 PM EST) Only the most recent of2 resultswithin the time period is included. Culture, Urine <10,000 CFU/mL gram positive cocci, insignificant count, no further workup 10/31/2024 10:19 AM [facility] Urine Urine specimen obtained by clean catch procedure / Unknown Non-blood Collection / Unknown 10/30/2024 12:12 PM EST 10/30/2024 2:16 PM EST Meghna WOODSON LAB MICROBIOLOGY - GENERAL ORDERABLES [facility] [address] [place] [address], * (ABNORMAL) CBC auto differential (10/29/2024 7:28 PM EST) WBC 9.3 4.8 - 10.8 K/mcL LAB HEMETOLOGY METHOD 10/29/2024 7:55 PM [facility] RBC 5.00(H) 3.80 - 4.80 M/mcL LAB HEMETOLOGY METHOD 10/29/2024 7:55 PM [facility] Hemoglobin 13.2 11.5 - 16.0 g/dL LAB HEMETOLOGY METHOD 10/29/2024 7:55 PM [facility] Hematocrit 41.2 35.0 - 47.0 % LAB HEMETOLOGY METHOD 10/29/2024 7:55 PM [facility] MCV 83.2 79.0 - 98.0 FL LAB HEMETOLOGY METHOD 10/29/2024 7:55 PM [facility] MCH 26.7(L) 27.0 - 32.0 pcg LAB HEMETOLOGY METHOD 10/29/2024 7:55 PM [facility] MCHC 32.0 32.0 - 37.0 g/dL LAB HEMETOLOGY METHOD 10/29/2024 7:55 PM [facility] RDW 14.0 11.0 - 15.0 % LAB HEMETOLOGY METHOD 10/29/2024 7:55 PM [facility] Platelets 382 130 - 400 K/mcL LAB HEMETOLOGY METHOD 10/29/2024 7:55 PM [facility] MPV 10.6 7.0 - 11.0 FL LAB HEMETOLOGY METHOD 10/29/2024 7:55 PM [facility] NRBC 0.0 <1.0 % LAB HEMETOLOGY METHOD 10/29/2024 7:55 PM [facility] NRBC Absolute 0.00 <0.10 K/mcL LAB HEMETOLOGY METHOD 10/29/2024 7:55 PM [facility] Neutrophils Relative 56.0 % LAB HEMETOLOGY METHOD 10/29/2024 7:55 PM [facility] Lymphocytes Relative 32.8 % LAB HEMETOLOGY METHOD 10/29/2024 7:55 PM [facility] Monocytes Relative 9.1 % LAB HEMETOLOGY METHOD 10/29/2024 7:55 PM [facility] Eosinophils Relative 0.9 % LAB HEMETOLOGY METHOD 10/29/2024 7:55 PM [facility] Basophils Relative 0.9 % LAB HEMETOLOGY METHOD 10/29/2024 7:55 PM [facility] Immature Granulocytes Relative 0.3 % LAB HEMETOLOGY METHOD 10/29/2024 7:55 PM [facility] Neutrophils Absolute 5.19 1.50 - 7.00 K/mcL LAB HEMETOLOGY METHOD 10/29/2024 7:55 PM [facility] Lymphocytes Absolute 3.03 1.00 - 5.00 K/mcL LAB HEMETOLOGY METHOD 10/29/2024 7:55 PM [facility] Monocytes Absolute 0.84 0.20 - 1.00 K/mcL LAB HEMETOLOGY METHOD 10/29/2024 7:55 PM [facility] Eosinophils Absolute 0.08 0.00 - 0.50 K/mcL LAB HEMETOLOGY METHOD 10/29/2024 7:55 PM EST [facility] Basophils Absolute 0.08 0.00 - 0.20 K/mcL LAB HEMETOLOGY METHOD 10/29/2024 7:55 PM [facility] Immature Granulocytes Absolute 0.03 0.00 - 0.03 K/[facility] LAB HEMETOLOGY METHOD 10/29/2024 7:55 PM [facility] Blood Venous blood specimen / Unknown Venipuncture / Unknown 10/29/2024 7:28 PM EST 10/29/2024 7:39 PM EST Hang Estes MD LAB BLOOD ORDERABLE S [facility] [address] [place] [address], * (ABNORMAL) Comprehensive metabolic panel (10/29/2024 7:28 PM EST) Sodium 139 133 - 145 mmol/L LAB CHEMISTRY METHOD 10/29/2024 8:26 PM [facility] Potassium 3.6 3.5 - 5.5 mmol/L LAB CHEMISTRY METHOD 10/29/2024 8:26 PM [facility] Chloride 103 96 - 110 mmol/L LAB CHEMISTRY METHOD 10/29/2024 8:26 PM [facility] CO2 28 21 - 32 mmol/L LAB CHEMISTRY METHOD 10/29/2024 8:26 PM [facility] Anion Gap 8 3 - 11 LAB CHEMISTRY METHOD 10/29/2024 8:26 PM [facility] Glucose 81 70 - 100 mg/dL LAB CHEMISTRY METHOD 10/29/2024 8:26 PM [facility] BUN 10 5 - 25 mg/dL LAB CHEMISTRY METHOD 10/29/2024 8:26 PM [facility] Creatinine 1.34(H) 0.50 - 1.10 mg/dL LAB CHEMISTRY METHOD 10/29/2024 8:26 PM [facility] eGFR 48(L) >=60 mL/min/1. 73m2 LAB CHEMISTRY METHOD 10/29/2024 8:26 PM [facility] Comment:Calculation based on the??Chronic Kidney Disease Epidemiology Collaboration (CKD-EPI) equation refit??without adjustment for race. BUN/Creatinine Ratio 7.5 LAB CHEMISTRY METHOD 10/29/2024 8:26 PM [facility] Calcium 9.9 8.5 - 10.5 mg/dL LAB CHEMISTRY METHOD 10/29/2024 8:26 PM [facility] AST (SGOT) 68(H) 10 - 42 unit/L LAB CHEMISTRY METHOD 10/29/2024 8:26 PM [facility] ALT (SGPT) 110(H) 10 - 60 unit/L LAB CHEMISTRY METHOD 10/29/2024 8:26 PM [facility] Alkaline Phosphatase 137(H) 42 - 121 unit/L LAB CHEMISTRY METHOD 10/29/2024 8:26 PM [facility] Total Protein 8.1(H) 6.0 - 8.0 g/dL LAB CHEMISTRY METHOD 10/29/2024 8:26 PM [facility] Albumin 3.9 3.2 - 5.0 g/dL LAB CHEMISTRY METHOD 10/29/2024 8:26 PM [facility] Total Bilirubin 1.2 0.0 - 1.4 mg/dL LAB CHEMISTRY METHOD 10/29/2024 8:26 PM [facility] Blood Venous blood specimen / Unknown Venipuncture / Unknown 10/29/2024 7:28 PM EST 10/29/2024 7:39 PM EST Hang Estes MD LAB BLOOD ORDERABLE S [facility] [address] [place] [address], [place] [phone] * POC , urine manually resulted (10/29/2024 4:45 PM EST) [facility] HCG, Ur POC Negative Negative POC hCG Int QC Pass? Yes Yes Urine Urine specimen obtained by clean catch procedure / Unknown 10/29/2024 4:45 PM EST Hang Estes MD POINT OF CARE TEST ENTER/EDIT ORDERABLES * Colonoscopy (02/28/2024) [facility] Colonoscopy no interpretation , abstracted Anatomical Region Laterality Modality Other Historical Provider [facility] * Depression Screening (02/01/2024) [facility] Depression Screening abstracted Historical Provider [facility] * HIV Screening (12/13/2023) [facility] HIV Screening abstracted Historical Provider [facility] * Hepatitis C Screening (12/13/2023) [facility] Hepatitis C Screening abstracted Historical Provider [facility] * (ABNORMAL) Lipid panel (2023) [facility] LDL/HDL Ratio 2 4 Triglycerides 100 150 mg/dL Cholesterol 234(A) 200 mg/dL HDL 99 40 mg/dL LDL Cholesterol 115(A) 100 mg/dL Blood Venous blood specimen / Unknown Historical Provider LAB BLOOD ORDERAB LES * Pap Smear (05/07/2020) [facility] Pap smear no interpretation , abstracted Historical Provider Hypertension DiagnosticsHELADIO E from Last 3 Months or Most Recently Relevant to Health Maintenance Care Teams Sr. Payroll Manager Relationship Specialty Start Date End Date Farhad Moreno MD [address] [place] [address] PCP - General Internal Medicine 06/09/22
[2024-12-26 10:01] VITALS: BP 169/92; PULSE 71; TEMP 36.5; O2SAT 99; BMI 35.5
== END 2024-12-26 10:31 | disposition home or self-care (01) ==
LOC: HO.HBS 09:54
PROVIDERS: PCP Internal Medicine; Visit Provider Physician Assistant Surgical
DX: E66.812 Obesity, class 2 (principal); Z68.35 Body mass index [BMI] 35.0-35.9, adult; Z98.84 Bariatric surgery status; L98.7 Excessive and redundant skin and subcutaneous tissue
CPT/HCPCS: 99214; G2211

== ENCOUNTER → 2024-12-26 09:54 | Outpatient (BNVA) | payer OTHER, SELFPAY | PROVIDERS: PCP Internal Medicine; Visit Provider Physician Assistant Surgical | DX: E66.9 Obesity, unspecified (principal); K91.2 Postsurgical malabsorption, not elsewhere classified; L98.7 Excessive and redundant skin and subcutaneous tissue; Z98.84 Bariatric surgery status; Z68.35 Body mass index [BMI] 35.0-35.9, adult | CPT/HCPCS: 99212 ==

== ENCOUNTER → 2025-01-03 11:41 | Outpatient (BNVA) | payer OTHER, SELFPAY | PROVIDERS: PCP Internal Medicine; Visit Provider Physician Assistant Surgical ==

== ENCOUNTER 2025-03-31 10:57 | Outpatient (AMB) | payer OTHER, SELFPAY ==
--- NOTE | 2025-03-31 10:56 | MHC.OFFVISWM ---
VS Expanded 03/31/25 10:57 Height 5 ft 4.5 in Weight 203 lb BMI 34.3 Intake Visit Reasons: TELEPHONE PO LSG 07/27/21 Allergies No Known Allergies Allergy (Verified 12/26/24 10:07) Medication List - Last Reconciled 03/31/25 by CHINTAN Daley amlodipine (Norvasc) 5 mg PO DAILY biotin 10,000 mcg PO DAILY cholecalciferol (vitamin D3) 125 mcg PO DAILY clotrimazole 1% 1 appl topical BID losartan 50 mg PO DAILY multivitamin 1 tab PO DAILY tirzepatide (weight loss) (Zepbound) 10 mg (0.5 mL) subcut QWEEK HPI Comments Details: This?is a?55?yo F who is s/p LSG 07/27/2021. Weight loss of 7.2lbs since last OV. Currently on 7.5mg Zepbound. Rare side effects, occasional upset stomach. Present meal plan includes: 2 shakes and a meal, or one shake, one bar/yogurt, and one meal Meals may include hamb[place] miriam and tossed vegetables or fruit (recommended instead of rice at last visit) noticed her hydration is low Exercise routine includes: walking, 3x/week for 30 min but more difficult in cold weather; Pt reports ongoing issues of excess skin of abdomen. Has tried clotrimazole to relieve itchy painful rashes but this has not completely resolved her issues. Notices that moisture collects in the skin fold and has unpleasant odor, has to wash frequently. Has to wear compressive pants with a tight waistband to hold the extra skin in place to prevent discomfort. Excess skin is uncomfortable when exercising as skin moves around a lot and makes exercise/walking more difficult. [facility] Medical History (Updated 03/03/23 @ 11:41 by CHINTAN Daley) Steatosis, liver COVID-19 vaccine series completed GERD (gastroesophageal reflux disease) Herpes Hypertension Morbid obesity Surgical History Hx of laparoscopic partial gastrectomy Hx of oophorectomy S/P cholecystectomy Hx of hysterectomy Family History Mother Hypertension Diabetes Kidney disease Father Prostate cancer Diabetes Hypertension Brother No problems noted. Sister Pre-diabetes Son No problems noted. Social History Household Members Other:: room mate Are you a primary caretaker grounds to a significant other at home: No Do you presently have visiting nurse or other home services: No Alcohol intake: never Patient Tobacco Use Status: Never used Tobacco service: No Current occupational status: employed Telehealth Telehealth Telehealth Platform: Telephone Location of provider rendering services: other Location of patient: address on file Patient Identification confirmed using: Name, : Yes Telehealth method: voice only Patient verbally consented to treatment: Yes Patient verbally consented to billing insurance company: Yes Patient informed of any privacy concerns related to visit: Yes Minutes spent on Phone/Video with Pt.: 15 Assessment & Plan Assessment & Plan (1) Obesity: Code(s): E66.9 - Obesity, unspecified Category: Medical (2) S/P laparoscopic sleeve gastrectomy: Code(s): Z98.84 - Bariatric surgery status Category: Medical Plan Pt reminded of the importance of weekly communication (she has not been texting me weekly weight measurements). Will increase Zepbound to 10mg. Pt will contact me if side effects become intolerable. RTC 3mo for phone visit. Pt will text me weekly between visits. Medications: New tirzepatide (weight loss) (Zepbound) 10 mg (0.5 mL) subcut QWEEK 2 mL 0RF Discontinued tirzepatide (weight loss) (Zepbound) Discontinued Reason: Doctor's Order 7.5 mg (0.5 mL) subcut QWEEK 2 mL 0RF
[2025-03-31 10:57] VITALS: BMI 34.3
--- OUTSIDE RECORDS SUMMARY | 2025-03-31 11:41 | XMS_ITS | Clinical Summary ---
Author Organization [facility] Address [address] [place] [address] Phone Care Team Providers Care Fabrication Machine Operator Name Role Phone Farhad Moreno MD Primary Care Provider Allergies Active Allergy Reactions Criticality Noted Date Comments Codeine Itching 10/09/2024 Oxycodone Itching 10/09/2024 Povidone-Iodine Dermatitis,Rash 10/09/2024 Medications estradioL (ESTRACE) 0.01 % (0.1 mg/gram) vaginal cream Insert 0.5 g into the vagina 3 (three) times a week. Mon/Wed/Fri 42.5 g 1 4 Active Additional Information Patient not taking.Reported on 10/30/2024 amLODIPine (NORVASC) 5 mg tablet Take 1 tablet (5 mg total) by mouth 1 (one) time each day. 4 Active bisacodyL (DULCOLAX) 5 mg EC tablet Take 2 tabs by mouth right before beginning bowel prep. Follow instructions given by office for timing. 4 Active diclofenac (VOLTAREN) 1 % topical gel Apply 2 g topically 4 times daily. Shoulder Pain 3 Active fluticasone propionate (FLONASE) 50 mcg/actuation nasal spray 2 Sprays by Nasal route daily. 2 Active polyethylene glycol (GoLYTELY) 236-22.74-6.74 -5.86 gram solution Take 240 mL by mouth once for 1 dose. Take 4L by mouth once for one dose. May substitue any PEG. Starting at 6PM the night before your procedure drink 1 8oz glasses at your own pace until rectals run clear. 4 Active polyethylene glycol (GoLYTELY) 236-22.74-6.74 -5.86 gram solution Take 4 L by mouth once for 1 dose. (May substitute any PEG) Mix prep according to directions. Starting at 6pm the night before your procedure, drink one 8oz glass at your own pace until your rectals run clear. 3 Active valACYclovir (VALTREX) 500 mg tablet Take 1 Tab by mouth 2 times daily. TAKE ONE TABLET BY MOUTH TWICE DAILY 8 Active losartan (COZAAR) 50 mg tablet Take 1.5 tablets (75 mg total) by mouth 1 (one) time each day. 4 Active cholecalciferol (VITAMIN D-3) 125 mcg (5,000 unit) capsule Take 1 capsule (5,000 Units total) by mouth 1 (one) time each day. 4 Active Active Problems Problem Noted Date Diagnosed Date Binge eating disorder 01/21/2025 Endometriosis 01/21/2025 Obesity 01/21/2025 Gastroesophageal reflux disease 01/21/2025 Hyperlipidemia 01/21/2025 PCOS (polycystic ovarian syndrome) 01/21/2025 Cyst of right kidney 12/06/2024 Genital herpes 10/26/2024 S/P gastric sleeve procedure 06/09/2022 Vaginal dryness, menopausal 11/05/2018 Overview (10/26/2024): Last Assessment & Plan: Recommended trying localized estradiol therapy applied with finger in burst and taper. She will try this. Vulvar atrophy 11/05/2018 HTN (hypertension) 05/06/2015 Dyslipidemia 11/21/2013 Microcytic anemia 11/21/2013 Vitamin D deficiency 11/21/2013 Immunizations Name Administration Dates Next Due Influenza Quadrivalent, 0.5m l, preservative free (Fluarix; FluLaval; Fluzone) ages 6mo and older (Afluria) 3yo and older 09/11/2019,08/31/2018,09/05/2017,09/06,09/09/2015 Influenza trivalent, 0.5mL, preservative free (Fluarix; FluLaval; Fluzone) ages 6mo and older (Afluria) 3 years and older 09/11/2019,08/31/2018,09/05/2017,09/06,09/09/2015 Pneumococcal polysaccharide 23 valent (Pneumovax 23) 2yo and older 02/06/2007 Tdap Tetanus diptheria acell ular pertussis (Boostrix; Adacel) 7yo and older 02/01/2024,11/20/2010 Varicella live (Varivax) 12m o and older 02/03/2014 Surgical History Surgery Date Site/Laterality Comments OOPHORECTOMY Bilateral PROCEDURE: HISTORICAL OOPHORECTOMY; COMMENT: Right, midline incision, [facility] CHOLECYSTECTOMY PROCEDURE: HISTORICAL CHOLECYSTECTOMY; COMMENT: laparoscopic HYSTEROSCOPY 07/10/2014 PROCEDURE: MA HYSTEROSCOPY BX ENDOMETRIUM&/POLYPC W/WO D&C OTHER SURGICAL HISTORY PROCEDURE: MA DILATION & CURETTAGE DX&/THER NONOBSTETRIC OTHER SURGICAL HISTORY 07/2014 PROCEDURE: MA HYSTEROSCOPY ENDOMETRIAL ABLATION OTHER SURGICAL HISTORY 01/19/2017 PROCEDURE: MA DILATION & CURETTAGE DX&/THER NONOBSTETRIC; COMMENT: Missed ab HYSTERECTOMY 03/12/2018 PROCEDURE: HISTORICAL TOTAL HYSTERECTOMY WITH BSO; COMMENT: fibroids, endometriosis Medical History Medical History Date Comments HTN (hypertension) DX:HTN (hyper tension) Genital herpes DX:Genital herpe s Endometriosis DX:Endometriosis Ovarian cyst DX:Ovarian cyst; COMMENT: s/p oopherectomy at [facility] BRCA1 gene mutation negative Gastroesophageal reflux disease 01/21/2025 Family History Medical History Relation Name Comments [...] drink = 0.6 oz pur e alcohol) Comments No Sex and Gender Information Value Date Recorded Sex Assigned at Female 10/29/2024 7:36 PM EST Legal Sex Female 9:41 AM EST Gender Identity Female 10/29/2024 7:36 PM EST Sexual Orientation Straight 10/29/2024 7: 36 PM EST Obstetrics History Para Term AB IAB SAB Ectopic Multiple Livin g Live Births 3 1 1 2 1 1 Date Outcome GA Total Labor Labor//3rd Weight Sex Type Anes PTL Crystal A1 A5 Name Clin AB AB 1987 Term M Vag-S pont Living Last Filed Vital Signs Vital Sign Reading [...] 12/06/2024 10:00 AM EST Plan of Treatment Health Maintenance Due Date Last Done Comments Hepatitis B Vaccines (1 of 3 - 19+ 3-dose series) 1990 Pneumococcal Vaccine: 50+ Years (2 of 2 - PCV) 2021 02/06/2007 Zoster Vaccines (1 of 2) 2021 02/03/2014 Social Influencers of Health Screening 10/29/2022 Cervical Cancer Screening: Pap Smear 05/07/2023 05/07/2020 COVID-19 Vaccine (3 - season) 2024 04/08/2021, 03/18/2021 Depression Screening 01/31/2025 02/01/2024 Influenza Vaccine (Season Ended) 2025 09/11/2019, 09/11/2019, 08/31/2018, Additional history exists Hypertension/CHF/CAD Annual BMP Blood Test 10/29/2025 10/29/2024, [...] patient's age to complete this topic Meningococcal B Vaccine Aged Out No l onger eligible based on patient's age to complete this topic RSV Immunization Patients Under 20 months Aged Out No longer eligible based on patient's age to complete this topic Procedures Procedure Name Priority Date/Time Associated Diagnosis Comments MG MAMMO DIGITAL SCREENING W RICKY BILAT Routine 12/06/2024 10:14 AM EST Encounter for screening mammogram for breast cancer COMPREHENSIVE METABOLIC PANEL STAT 10/29/2024 7:28 PM EST HM COLONOSCOPY Routine 02/28/2024 HM DEPRESSION SCREENING Routine 02/01/2024 HM HEPATITIS C SCREENING Routine 12/13/2023 HM HIV SCREENING Routine 12/13/2023 LIPID PANEL Routine [...] Date: 12/09/2024 12:22 ET Assigned Physician: Joel iMx Reviewed and Electronically Signed By: Joel Mix Signed Date: 12/09/2024 12:33 ET Workstation ID: [id number] Transcribed By: Self Edit Transcribed Date: 12/09/2024 [...] Signed Date: 12/09/2024 12:33 ET Workstation ID: [id number] Transcribed By: Self Edit Transcribed Date: 12/09/2024 12:22 ET us Self Referral Sppl IMG BI PROCEDURES Final Resul t * (ABNORMAL) Comprehensive metabolic panel (10/29/2024 7:28 PM EST) Sodium 139 133 - 145 mmol/L LAB CHEMISTRY METHOD 10/29/2024 8:26 PM [facility] Potassium 3.6 3.5 - 5.5 mmol/L LAB CHEMISTRY METHOD 10/29/2024 8:26 PM [facility] Chloride 103 96 - 110 mmol/L LAB CHEMISTRY METHOD 10/29/2024 8:26 PM [facility] CO2 28 21 - 32 mmol/L LAB CHEMISTRY METHOD 10/29/2024 8:26 PM [facility] Anion Gap 8 3 - 11 LAB CHEMISTRY METHOD 10/29/2024 8:26 PM [facility] Glucose 81 70 - 100 mg/dL LAB CHEMISTRY METHOD 10/29/2024 8:26 PM [facility] BUN 10 5 - 25 mg/dL LAB CHEMISTRY METHOD 10/29/2024 8:26 PM [facility] Creatinine 1.34(H) 0.50 - 1.10 mg/dL LAB CHEMISTRY METHOD 10/29/2024 8:26 PM [facility] eGFR 48(L) >=60 mL/min/1. 73m2 LAB CHEMISTRY METHOD 10/29/2024 8:26 PM [facility] Comment:Calculation based on the??Chronic Kidney Disease Epidemiology Collaboration (CKD-EPI) equation refit??without adjustment for race. BUN/Creatinine Ratio 7.5 LAB CHEMISTRY METHOD 10/29/2024 8:26 PM [facility] Calcium 9.9 8.5 - 10.5 mg/dL LAB CHEMISTRY METHOD 10/29/2024 8:26 PM [facility] AST (SGOT) 68(H) 10 - 42 unit/L LAB CHEMISTRY METHOD 10/29/2024 8:26 PM [facility] ALT (SGPT) 110(H) 10 - 60 unit/L LAB CHEMISTRY METHOD 10/29/2024 8:26 PM [facility] Alkaline Phosphatase 137(H) 42 - 121 unit/L LAB CHEMISTRY METHOD 10/29/2024 8:26 PM [facility] Total Protein 8.1(H) 6.0 - 8.0 g/dL LAB CHEMISTRY METHOD 10/29/2024 8:26 PM [facility] Albumin 3.9 3.2 - 5.0 g/dL LAB CHEMISTRY METHOD 10/29/2024 8:26 PM [facility] Total Bilirubin 1.2 0.0 - 1.4 mg/dL LAB CHEMISTRY METHOD 10/29/2024 8:26 PM [facility] Blood Venous blood specimen / Unknown Venipuncture / Unknown 10/29/2024 7:28 PM EST 10/29/2024 7:39 PM EST Hang Estes MD LAB BLOOD ORDERABLES Final Result Performing Organization Address City/State/[facility] Co de Phone Number [facility] [address] [place] [address], * Colonoscopy (02/28/2024) Colonoscopy no interpretation , abstracted Anatomical Region Laterality Modality Other Historical Provider HEALTH MAINTENANCE Final Result * Depression Screening (02/01/2024) Depression Screening abstracted Historical Provider HEALTH MAINTENANCE Final Result * HIV Screening (12/13/2023) Pathologist [facility] HIV Screening abstracted Historical Provider HEALTH MAINTENANCE Final Result * Hepatitis C Screening (12/13/2023) [facility]ologist [facility] Hepatitis C Screening abstracted [facility] Provider HEALTH MAINTENANCE Final Result * (ABNORMAL) Lipid panel (2023) [facility] LDL/HDL Ratio 2 <=4 Triglycerides 100 <=150 mg/dL Cholesterol 234(A) <=200 mg/dL HDL 99 >=40 mg/dL LDL Cholesterol 115(A) <=100 mg/dL Blood Venous blood specimen / Unknown Result [facility] Provider LAB BLOOD ORDERABLES Kimi l Result * Pap Smear (05/07/2020) [facility]ologist [facility] Pap smear no interpretation , abstracted [facility] Provider HEALTH MAINTENANCE Final Result from Last 3 Months or Most Recently Relevant to Health Maintenance Insurance [facility] [employer] Care Teams Fabrication Machine Operator Relationship Specialty Start Date End Date Farhad Moreno MD [address] [place] [address] PCP - General Internal Medicine 06/09/22
== END 2025-03-31 11:12 | disposition home or self-care (01) ==
LOC: HO.HBS 10:57
PROVIDERS: PCP Internal Medicine; Visit Provider Physician Assistant Surgical
DX: E66.9 Obesity, unspecified (principal); Z68.34 Body mass index [BMI] 34.0-34.9, adult; Z98.84 Bariatric surgery status
CPT/HCPCS: 99214; G2211